=== PATIENT | female | born 1955 | race Caucasian/White ===

== ENCOUNTER 2019-07-12 15:55 | Inpatient (IN) | payer OTHER, SELFPAY ==
[~2019-07-12] VITALS: Ht 175.3 cm; Wt 118.9 kg
[2019-07-12] MEDS ORDERED: SUCCINYLCHOLINE CHLORIDE 20 MG/ML 10ML VIAL IV ONE ×2 (16:03→16:15)
[2019-07-12] MEDS ORDERED: ETOMIDATE (2MG/ML) 20ML VIAL IV ONE ×2 (16:03→16:15)
[2019-07-12] MEDS ORDERED: MIDAZOLAM DRIP 50 mg/50mL 50 ML IV ONE (16:04)
[2019-07-12] MEDS: MIDAZOLAM DRIP 50 mg/50mL 50 ML IV SCH ×3 (16:12→19:56)
[2019-07-12] MEDS ORDERED: PROPOFOL 100 ML IV ONE (16:36)
[2019-07-12] MEDS ORDERED: SODIUM CHLORIDE 0.9% 1,000 ML IV ONE (16:52)
[2019-07-12] MEDS ORDERED: cefTRIAXone 1GM/50ML D5W 50 ML IV ONE ×3 (16:56→17:15)
[2019-07-12] MEDS ORDERED: AZITHROMYCIN 500MG/ 250ML 250 ML IV ONE ×3 (16:56→17:15)
[2019-07-12 17:16] LABS: Eosinophils # (auto) 0 10 ^3/uL (0-0.8); Lymphocytes # (auto) 0.8 10 ^3/uL (0.4-5.4); Neutrophils # (auto) 7.6 10 ^3/uL (1.6-8.6); Neutrophils % (auto) 84.1 % (37.0-80.0)
[2019-07-12 17:17] LABS: Basophils # (auto) 0.1 10 ^3/uL (0-0.2); Basophils % (auto) 0.6 % (0.0-2.0); Eosinophils % (auto) 0.3 % (0.0-7.0); Hematocrit 31.3 % (36.0-46.0); Lymphocytes % (auto) 9.1 % (10.0-50.0); Mean Corpuscular Hemoglobin 25.3 pg (28.0-32.0); Mean Corpuscular Hgb Conc. 31.8 g/dL (32.0-36.0); Mean Corpuscular Volume 79.5 fL (80.0-100.0); Monocytes # (auto) 0.5 10 ^3/uL (0-1.3); Monocytes % (auto) 5.9 % (0.0-12.0); Platelet Count (auto) 204 10^3/uL (140-450); Red Blood Cells 3.94 10^6/uL (4.0-5.20); Red Cell Distribution Width 15.8 % (11.8-14.3)
[2019-07-12 17:30] LABS: Albumin 2.3 g/dL (3.4-5.0); Calcium 8.1 mg/dL (8.5-10.1); Potassium 4.6 mmol/L (3.5-5.1)
[2019-07-12 17:36] LABS: BUN/Creatinine Ratio 15.1; Bilirubin, Total 0.3 mg/dL (0.2-1.0); Total Protein 6.8 g/dL (6.4-8.2)
[2019-07-12] MEDS: PROPOFOL 100 ML IV SCH ×2 (17:37→18:59)
[2019-07-12] MEDS ORDERED: ENOXAPARIN SOD 150 MG/1 ML SYRINGE SC ONE (17:45)
[2019-07-12] MEDS ORDERED: CLOPIDOGREL BISULFATE 75 MG TAB PO ONE (17:45)
[2019-07-12 17:59] LABS: Urine Amorphous Crystal MANY /hpf (None Seen); Urine Bacteria MANY /hpf (None Seen); Urine Blood 2+ /uL (Negative); Urine Mucus FEW (None Seen); Urine Specific Gravity 1.024 (1.001-1.035); Urine WBC 2 /hpf (0 - 5); Urine WBC Clumps PRESENT /hpf (None Seen)
[2019-07-12 18:25] LABS: INR 1.01 (0.9-1.15); Partial Thromboplastin Time 23.1 sec (23.64-32.05)
--- NOTE | 2019-07-12 19:30 | NUR ---
PT INTUBATED ETT 8.0/ 22CM@LL, VENT SETTINGS: AC16/TV600/FIO2 70%/PEEP14, O2SAT 100%, BL LUNG SOUNDS DIMINISHED. CENTRAL LINE RSC TL, INFUSING VERSED@12MG/HR, PROPOFOL@30MCG/KG/MIN, NS@150ML/HR. OGT CLAMPED, PLACEMENT CHECKED. HARMON CATHETER DRAINING VIA GRAVITY W/ YELLOW URINE. TEMP 97.[address] SAFETY PRECAUTIONS IN PLACE. WILL CONTINUE TO MONITOR.
[2019-07-12] MEDS ORDERED: ACETAMINOPHEN 500 MG TAB PO PRN (19:45)
[2019-07-12] MEDS ORDERED: NITROGLYCERIN 0.4 MG SL TAB SL PRN (19:45)
[2019-07-12] MEDS ORDERED: DEXTROSE (50%) 50ML SYRG IV PRN (19:45)
[2019-07-12] MEDS ORDERED: MORPHINE SULF INJ 2 MG/ML SYRINGE 1ML IV PRN (19:45)
[2019-07-12 20:04] LABS: CRP High Sensitivity 0.18 mg/dL (< 0.3)
[2019-07-12 20:40] VITALS: BP 88/62
[2019-07-12] MEDS ORDERED: NOREPINEPHRINE 8 MG/250ML KIT 250 ML IV ONE (21:22)
[2019-07-12] MEDS ORDERED: ALBUMIN 5% 250 ML IV ONE ×2 (21:24→21:30)
[2019-07-12] MEDS: InsuLIN REG 1unit/0.01ml Soln (100units/ml) SC SCH (22:00)
[2019-07-12] MEDS ORDERED: ENOXAPARIN SOD 100 MG/1 ML SYRINGE SC SCH (22:00)
[2019-07-12] MEDS ORDERED: ALBUTEROL SULF HFA 90MCG INH 200DOSE IN SCH (22:00)
[2019-07-12] MEDS ORDERED: fentaNYL Drip 2500mCg/250mlNS 250 ML IV ONE (22:14)
[2019-07-12] MEDS: ACCU-CHEK COMFORT CURVE STRIP VI SCH (22:48)
[2019-07-12] MEDS: fentaNYL Drip 2500mCg/250mlNS 250 ML IV SCH (22:51)
[2019-07-12 23:00] VITALS: BP 120/72
[2019-07-13] VITALS (54 sets, daily range): BP systolic 104–143; BP diastolic 63–79
[2019-07-13] MEDS: PIPERACILLIN-TAZOB 2.25GM 50 ML IV SCH ×4 (00:55→17:50)
[2019-07-13] MEDS ORDERED: ENOXAPARIN SOD 150 MG/1 ML SYRINGE SC SCH (05:00)
[2019-07-13 06:24] LABS: Basophils # (auto) 0 10 ^3/uL (0-0.2); Basophils % (auto) 0.7 % (0.0-2.0); Eosinophils # (auto) 0.1 10 ^3/uL (0-0.8); Eosinophils % (auto) 0.9 % (0.0-7.0); Hematocrit 25.2 % (36.0-46.0); Hemoglobin 8.1 g/dL (12.2-16.2); Lymphocytes # (auto) 1.4 10 ^3/uL (0.4-5.4); Lymphocytes % (auto) 24.3 % (10.0-50.0); Mean Corpuscular Hemoglobin 25.1 pg (28.0-32.0); Mean Corpuscular Hgb Conc. 32.1 g/dL (32.0-36.0); Monocytes # (auto) 0.6 10 ^3/uL (0-1.3); Monocytes % (auto) 9.9 % (0.0-12.0); Neutrophils # (auto) 3.7 10 ^3/uL (1.6-8.6); Neutrophils % (auto) 64.2 % (37.0-80.0); Nucleated Red Blood Cells % 0.4 %; Platelet Count (auto) 150 10^3/uL (140-450); Red Blood Cells 3.22 10^6/uL (4.0-5.20); Red Cell Distribution Width 15.6 % (11.8-14.3); White Blood Cell 5.8 10^3/uL (4.4-10.8)
[2019-07-13 06:37] LABS: Calcium 7.7 mg/dL (8.5-10.1); Potassium 4.2 mmol/L (3.5-5.1)
[2019-07-13 06:42] LABS: BUN/Creatinine Ratio 11.9; Bilirubin, Total 0.3 mg/dL (0.2-1.0); Total Protein 5.5 g/dL (6.4-8.2)
[2019-07-13] MEDS: ACCU-CHEK COMFORT CURVE STRIP VI SCH ×4 (08:02→21:19)
[2019-07-13] MEDS: InsuLIN REG 1unit/0.01ml Soln (100units/ml) SC SCH ×4 (08:02→21:18)
[2019-07-13] MEDS: ZINC SULFATE 220mg CAP or TAB PO SCH (09:22)
[2019-07-13] MEDS: ASPirin 81 mg TAB PO SCH (09:22)
[2019-07-13] MEDS: AZITHROMYCIN 500MG/ 250ML 250 ML IV SCH (09:22)
[2019-07-13] MEDS: CHOLECALCIFEROL (VITD3) 1,000UNIT=25mCg TAB PO SCH (09:23)
[2019-07-13] MEDS: ASCORBIC ACID 500 MG TAB PO SCH (09:23)
[2019-07-13] MEDS: ENOXAPARIN SOD 150 MG/1 ML SYRINGE SC SCH ×2 (09:25→21:19)
[2019-07-13] MEDS ORDERED: AZITHROMYCIN DIHYD 500 MG VIAL IV SCH (10:00)
--- NOTE | 2019-07-13 13:52 | NUR ---
HOSPITALIST AT NURSE STATION DR PEDROZA UPDATED ON PATIENT'S STATUS, DRIPS AND PENDING CONSULTS. DR PEDROZA HAD PREVIOUSLY REVIEWED HIS LABS AND IMAGES. ORDERS FOR ONE DOSE LASIX RECEIVED.
--- NOTE | 2019-07-13 13:56 | NUR ---
MESSAGE LEFT FOR FAMILY TO OBTAIN PATIENT MEDICAL HISTORY AND COMPLETE ADMISSION ASSESSMENT, AWAITING RESPONSE.
[2019-07-13] MEDS ORDERED: FUROSEMIDE 20 MG/2 ML VIAL IV ONE (14:00)
--- NOTE | 2019-07-13 14:52 | NUR ---
MEDICATION NOT AVAILABLE CALLED PHARMACY REGARDING LASIX ORDER. THEY WILL SEND TO UNIT, AWAITING RECEIPT.
--- NOTE | 2019-07-13 16:00 | NUR ---
WOUND CARE NOTE: WOUND CARE TEAM IN TO SEE PATIENT PER WOUND CARE REQUEST FOR LOW DEE SCORE AND INTUBATION. PATIENT ADMITTED TO [facility] FOR ACUTE HYPOXIC AND HYPERCAPNIC RESPIRATORY FAILURE AND SEPSIS. PATIENT IS INTUBATED AND SEDATED. PATIENT HAS A DEE SCORE OF 10. BEDSIDE NURSE ADVISES THAT PATIENT HAS REDNESS TO ABDOMINAL AND BREAST SKIN FOLDS. NO OTHER WOUNDS NOTED BY BEDSIDE NURSE. RECOMMEND: BID/PRN MOISTURE BARRIER CREAM/ANTIFUNGAL CLEAR TO AFFECTED AREAS. FREQUENT REPOSITION [id number]/PRN CONDITION PERMITS. REDISTRIBUTE PRESSURE UTILIZING PILLOWS/WEDGES. SKIN/WOUND CARE PLAN. DIETARY CONSULT. CONTINUED MONITORING BY WOUND CARE TEAM.
--- NOTE | 2019-07-13 16:12 | NUR ---
HOSPITALIST AT BEDSIDE DR HIGH UPDATED ON PATIENT'S STATUS, DRIPS, LABS AND IMAGES. ORDERS RECEIVED AND WILL BE CARRIED OUT.
[2019-07-13] MEDS: PROPOFOL 100 ML IV SCH (17:52)
--- NOTE | 2019-07-13 19:00 | NUR ---
OPENING SHIFT NOTE: PRIMARY RN AVINASH RECEIVED REPORT ON PATIENT. PT INTUBATED ETT 8.0/ 24CM@LL, VENT SETTINGS: AC16/TV450/FIO2 40%/PEEP12, O2SAT 95%, BILATERAL LUNG SOUNDS DIMINISHED. CENTRAL LINE RIGHT IJ TRIPLE LUMEN, INFUSING FENTANYL@100, PROPOFOL@5. NGT IN RIGHT NARE CLAMPED, PLACEMENT CHECKED. HARMON CATHETER DRAINING VIA GRAVITY W/ YELLOW URINE. TEMP 100.[address] SAFETY PRECAUTIONS IN PLACE. WILL CONTINUE TO MONITOR. PATIENT ON ISOLATION FOR RULE OUT COVID 19.
--- NOTE | 2019-07-13 19:24 | NUR ---
END OF SHIFT NOTE PATIENT MECHANICALLY VENTILATED, SEDATED, NO DISTRESS NOTED, RESPIRATIONS EVEN AND UNLABORED. VSS AND DOCUMENTED. ENDORSED CONTINUED CARE TO CELERY WRAPPER RN. PATIENT'S SON AJAY AND SON RHIANNA CONTACT THIS NURSE AND PROVIDED SOME HISTORY. MEDICATION RECONCILIATION IS PENDING, JOHN MOCTEZUMA WILL BE CALLING WITH MEDICATION LIST. RECEIVING RN AWARE.
--- NOTE | 2019-07-13 20:30 | NUR ---
Home medications: Family called with list of patient medications. RN reviewed home medications with family and updated patient med rec.
[2019-07-13] MEDS: fentaNYL Drip 2500mCg/250mlNS 250 ML IV SCH (22:23)
[2019-07-13] MEDS ORDERED: TIOTCAP IN (23:20)
[2019-07-13] MEDS ORDERED: PANT1INJ3 PO (23:32)
[2019-07-13] MEDS ORDERED: ALBU108A5 IN (23:32)
[2019-07-13] MEDS ORDERED: MONT5CHW17 PO (23:32)
[2019-07-13] MEDS ORDERED: LOSA-39 PO (23:32)
[2019-07-13] MEDS ORDERED: CLOP75TA41 PO (23:32)
[2019-07-13] MEDS ORDERED: MAGN400T40 PO (23:32)
[2019-07-13] MEDS ORDERED: GLIP-110 PO (23:32)
[2019-07-13] MEDS ORDERED: MULT-927 PO (23:32)
[2019-07-13] MEDS ORDERED: CYCL10TA6 PO (23:32)
[2019-07-13] MEDS ORDERED: CHOL20007 PO (23:32)
[2019-07-13] MEDS ORDERED: AMLO5TAB15 PO (23:32)
[2019-07-13] MEDS ORDERED: ATOR40TA52 PO (23:32)
[2019-07-13] MEDS ORDERED: DIPH2.5T73 PO (23:32)
[2019-07-13] MEDS ORDERED: CITA-77 PO (23:32)
[2019-07-13] MEDS ORDERED: HYDR25TA4 PO (23:32)
[2019-07-13] MEDS ORDERED: LEVO88TA4 PO (23:32)
[2019-07-14] VITALS (92 sets, daily range): BP systolic 90–139; BP diastolic 58–79
[2019-07-14] MEDS: PIPERACILLIN-TAZOB 2.25GM 50 ML IV SCH ×4 (00:32→18:00)
--- NOTE | 2019-07-14 01:00 | NUR ---
Patient was given a bed bath. Patient tolerated intervention well with no s/s of discomfort or distress.
--- NOTE | 2019-07-14 05:37 | NUR ---
Urine output: Patient noted to have 250mL of urine output that was yellow in color and partly cloudy.
[2019-07-14 05:41] LABS: Basophils # (auto) 0 10 ^3/uL (0-0.2); Basophils % (auto) 0.4 % (0.0-2.0); Eosinophils # (auto) 0.1 10 ^3/uL (0-0.8); Eosinophils % (auto) 0.9 % (0.0-7.0); Hematocrit 24.3 % (36.0-46.0); Hemoglobin 7.8 g/dL (12.2-16.2); Lymphocytes % (auto) 11.8 % (10.0-50.0); Monocytes # (auto) 0.7 10 ^3/uL (0-1.3); Monocytes % (auto) 8.8 % (0.0-12.0); Neutrophils # (auto) 6.3 10 ^3/uL (1.6-8.6); Neutrophils % (auto) 78.1 % (37.0-80.0); Nucleated Red Blood Cells % 0.1 %; Platelet Count (auto) 127 10^3/uL (140-450); Red Blood Cells 3.12 10^6/uL (4.0-5.20); Red Cell Distribution Width 15.8 % (11.8-14.3); White Blood Cell 8.1 10^3/uL (4.4-10.8)
[2019-07-14 06:09] LABS: Albumin 1.8 g/dL (3.4-5.0); Calcium 7.2 mg/dL (8.5-10.1); Potassium 3.5 mmol/L (3.5-5.1)
[2019-07-14] MEDS: ACCU-CHEK COMFORT CURVE STRIP VI SCH ×4 (06:11→22:24)
[2019-07-14] MEDS: InsuLIN REG 1unit/0.01ml Soln (100units/ml) SC SCH ×4 (06:11→22:00)
[2019-07-14 06:15] LABS: BUN/Creatinine Ratio 10.2; Bilirubin, Total 0.5 mg/dL (0.2-1.0)
--- NOTE | 2019-07-14 07:00 | NUR ---
Closing shift note: Report given and care endorsed to Gi BETANCOURT. Patient continues to rest comfortably in bed with no s/s of discomfort or distress at this time.
--- NOTE | 2019-07-14 07:25 | NUR ---
INITIAL ASSESSMENT RECEIVED PT FROM PHARMACY OPERATIONS COORDINATOR, PT CURRENTLY ON SETTINGS AC, RR 16, VT 450, PEEP +12, FIO2 INCREASED TO 45%. PT IS ON VENT V7 PLUGGED INTO RED OUTLET, AMBU BAG AND MASK AVAILABLE AT BEDSIDE. PT WITH ETT 8.0 SECURED AT 22CM LIP WITH HOLISTER. ETT REPOSITIONED TO LEFT SIDE, NO SKIN BREAKDOWN NOTED. BREATH SOUNDS DIMINISHED THROUGHOUT. SUCTIONED FOR MODERATE AMOUNT THIN CLEAR SECRETIONS. LARGE AMOUNT OF CONDENSATION NOTED IN CIRCUIT, TUBING WAS DRAINED WITHOUT INCIDENT, HEATER TEMP ADJUSTED. VENT ALARMS SET AND AUDIBLE TO NURSE'S STATION. PT SEDATED AND DOES NOT WAKE TO VERBAL OR TACTILE STIMULI. SKIN IS WARM AND DRY TO TOUCH. ABG DRAWN, RESULTS TO FOLLOW. WILL CONTINUE TO MONITOR.
--- NOTE | 2019-07-14 07:45 | NUR ---
OPENING NOTE SHIFT REPORT RECEIVED AND ASSUMED CARE OF PT FROM JAYY BETANCOURT/AVINASH BETANCOURT
[2019-07-14] MEDS: AZITHROMYCIN 500MG/ 250ML 250 ML IV SCH (09:47)
[2019-07-14] MEDS: ASPirin 81 mg TAB PO SCH (09:48)
[2019-07-14] MEDS: ENOXAPARIN SOD 150 MG/1 ML SYRINGE SC SCH (09:49)
[2019-07-14] MEDS ORDERED: AZITHROMYCIN DIHYD 500 MG VIAL IV SCH (10:00)
[2019-07-14] MEDS: CHOLECALCIFEROL (VITD3) 1,000UNIT=25mCg TAB PO SCH (10:00)
[2019-07-14] MEDS: ASCORBIC ACID 500 MG TAB PO SCH (10:51)
[2019-07-14] MEDS: ZINC SULFATE 220mg CAP or TAB PO SCH (11:53)
--- NOTE | 2019-07-14 12:00 | NUR ---
SPOKE WITH DR. PEDROZA ORDERS RECEIVED
[2019-07-14] MEDS: LACTATED RINGER'S 1,000 ML IV SCH (12:25)
--- NOTE | 2019-07-14 13:00 | NUR ---
DR. HOUSTON AT BEDSIDE ORDERS RECEIVED
[2019-07-14] MEDS ORDERED: BUMETANIDE 2.5mg/10ml (0.25 mg/ml) INJ IV ONE (13:15)
--- NOTE | 2019-07-14 14:30 | NUR ---
Nutrition Assessment Notes Please refer to link for full assessment notes. Est energy needs: 8211-8434 kcals (12-15 kcal/kgBW) Est protein needs: 83-92 gms/day (1.0-1.1 gm/kgAdjBW) Will continue to monitor and reassess prn. Addendum: 07/14/19 at [address] Amended: Links added.
[2019-07-14] MEDS: MIDAZOLAM DRIP 50 mg/50mL 50 ML IV SCH (16:12)
[2019-07-14] MEDS: fentaNYL Drip 2500mCg/250mlNS 250 ML IV SCH (16:22)
[2019-07-14 16:33] LABS: INR 1.09 (0.9-1.15)
[2019-07-14] MEDS: FUROSEMIDE 100 MG/10ML VIAL IV SCH (18:00)
[2019-07-14] MEDS: PROPOFOL 100 ML IV SCH (19:23)
--- NOTE | 2019-07-14 19:35 | NUR ---
CLOSING NOTE SHIFT REPORT GIVEN AND CARE ENDORSED TO MAURILIO BETANCOURT
--- NOTE | 2019-07-14 22:45 | NUR ---
O2 saturations dropping to 88% and sustaining, RT at bedside to increase fio2 to 45%. O2 sats now 95%.
[2019-07-15] VITALS (94 sets, daily range): BP systolic 64–148; BP diastolic 48–70
[2019-07-15] MEDS: PIPERACILLIN-TAZOB 2.25GM 50 ML IV SCH ×5 (00:29→23:34)
[2019-07-15] MEDS: LACTATED RINGER'S 1,000 ML IV SCH ×2 (01:35→10:46)
[2019-07-15 05:07] LABS: Basophils # (auto) 0 10 ^3/uL (0-0.2); Eosinophils # (auto) 0.1 10 ^3/uL (0-0.8); Hemoglobin 8.2 g/dL (12.2-16.2); Lymphocytes # (auto) 0.8 10 ^3/uL (0.4-5.4); Monocytes # (auto) 0.5 10 ^3/uL (0-1.3); Neutrophils % (auto) 77.1 % (37.0-80.0)
[2019-07-15 05:10] LABS: Basophils % (auto) 0.3 % (0.0-2.0); Eosinophils % (auto) 1.4 % (0.0-7.0); Hematocrit 25.4 % (36.0-46.0); Mean Corpuscular Hgb Conc. 32.4 g/dL (32.0-36.0); Mean Corpuscular Volume 77.3 fL (80.0-100.0); Monocytes % (auto) 8.2 % (0.0-12.0); Neutrophils # (auto) 4.7 10 ^3/uL (1.6-8.6); Nucleated Red Blood Cells % 0.1 %; Platelet Count (auto) 117 10^3/uL (140-450); Red Blood Cells 3.28 10^6/uL (4.0-5.20); Red Cell Distribution Width 16.1 % (11.8-14.3)
[2019-07-15 05:25] LABS: Albumin 1.7 g/dL (3.4-5.0); Calcium 7.6 mg/dL (8.5-10.1); Potassium 3.8 mmol/L (3.5-5.1)
[2019-07-15 05:31] LABS: BUN/Creatinine Ratio 10.1; Bilirubin, Total 0.4 mg/dL (0.2-1.0); Total Protein 5.6 g/dL (6.4-8.2)
[2019-07-15] MEDS: FUROSEMIDE 100 MG/10ML VIAL IV SCH (05:57)
[2019-07-15] MEDS: ACCU-CHEK COMFORT CURVE STRIP VI SCH ×4 (06:34→22:00)
[2019-07-15] MEDS: InsuLIN REG 1unit/0.01ml Soln (100units/ml) SC SCH ×4 (06:34→22:00)
[2019-07-15] MEDS: ENOXAPARIN SOD 150 MG/1 ML SYRINGE SC SCH (10:00)
[2019-07-15] MEDS ORDERED: ASPirin 81 mg TAB PO SCH (10:00)
--- NOTE | 2019-07-15 10:00 | NUR ---
LOVENOX HELD DUE TO FACT PATIENT CONTINUES TO HAVE BLEEDING FROM CENTRAL LINE WELL ABDOMEN FROM PREVIOUS LOVENOX ADMINISTRATION. DR. PEDROZA CALLED TO BE MADE AWARE.
--- NOTE | 2019-07-15 10:40 | NUR ---
2D ECHO BEING DONE AT TIS TIME. SEE REPORT
[2019-07-15] MEDS: ASPirin 81 mg TAB PO SCH (10:46)
[2019-07-15] MEDS: AZITHROMYCIN 500MG/ 250ML 250 ML IV SCH (10:46)
[2019-07-15] MEDS: CHOLECALCIFEROL (VITD3) 1,000UNIT=25mCg TAB PO SCH (10:47)
[2019-07-15] MEDS: ASCORBIC ACID 500 MG TAB PO SCH (10:47)
[2019-07-15] MEDS: ZINC SULFATE 220mg CAP or TAB PO SCH (10:47)
[2019-07-15] MEDS: FUROSEMIDE INJECTION 100 MG in D5W 5% 100 ML IV SCH ×2 (10:51→17:24)
--- NOTE | 2019-07-15 14:53 | NUR ---
DR. SKELTON HERE TO SEE PATIENT. SEE MD NOTES AND EMR FOR ANY NEW ORDERS.
--- NOTE | 2019-07-15 14:55 | NUR ---
assessment Patient is a 63 year old female who is on a vent in [facility]. Per patients Ronni prior to admission patient lived home with him and was independent. Per Thong patient has a fww and home 02 at 2L/min. Thong informed me patient was sick had SOB and desated with ambulation down to the 50's. Thong informed me he turned patients 02 to 4 L/m and it did not help so he called 911. Patient was brought to ER and admitted and put on a vent. I informed Thong that patients post discharge needs to be determined after extubation and prior to discharge. Thong verbalized understanding. Addendum: 07/15/19 at 1513 by Billie OLIVER Amended: Links added.
--- NOTE | 2019-07-15 15:40 | NUR ---
Susan PEDROZA HERE TO SEE PATIENT. SEE MD NOTES AND EMR FOR ANY NEW ORDERS.
--- NOTE | 2019-07-15 15:45 | NUR ---
SAY FORD MADE AWARE THAT PATIENTS ET TUBE IS 8.5 CM ABOVE THE MARYBEL.
[2019-07-15] MEDS: PROPOFOL 100 ML IV SCH ×2 (16:03→21:44)
[2019-07-15] MEDS: MIDAZOLAM DRIP 50 mg/50mL 50 ML IV SCH (16:12)
[2019-07-15] MEDS: fentaNYL Drip 2500mCg/250mlNS 250 ML IV SCH (22:25)
[2019-07-16] VITALS (96 sets, daily range): BP systolic 101–169; BP diastolic 45–145
[2019-07-16 03:54] LABS: Basophils # (auto) 0 10 ^3/uL (0-0.2); Basophils % (auto) 0.2 % (0.0-2.0); Eosinophils # (auto) 0.1 10 ^3/uL (0-0.8); Hemoglobin 8.3 g/dL (12.2-16.2); Monocytes # (auto) 0.6 10 ^3/uL (0-1.3); Neutrophils # (auto) 6.5 10 ^3/uL (1.6-8.6); Nucleated Red Blood Cells % 0.1 %; Red Cell Distribution Width 15.8 % (11.8-14.3); White Blood Cell 7.7 10^3/uL (4.4-10.8)
[2019-07-16 03:56] LABS: Eosinophils % (auto) 0.9 % (0.0-7.0); Hematocrit 25.3 % (36.0-46.0); Lymphocytes # (auto) 0.6 10 ^3/uL (0.4-5.4); Lymphocytes % (auto) 7.6 % (10.0-50.0); Mean Corpuscular Hemoglobin 25.3 pg (28.0-32.0); Mean Corpuscular Hgb Conc. 32.6 g/dL (32.0-36.0); Mean Corpuscular Volume 77.5 fL (80.0-100.0); Monocytes % (auto) 7.5 % (0.0-12.0); Neutrophils % (auto) 83.8 % (37.0-80.0); Platelet Count (auto) 98 10^3/uL (140-450); Red Blood Cells 3.27 10^6/uL (4.0-5.20)
[2019-07-16 04:15] LABS: Albumin 1.7 g/dL (3.4-5.0); Calcium 7.7 mg/dL (8.5-10.1); Potassium 3.7 mmol/L (3.5-5.1)
[2019-07-16 04:20] LABS: BUN/Creatinine Ratio 9.9; Bilirubin, Total 0.4 mg/dL (0.2-1.0); Total Protein 5.7 g/dL (6.4-8.2)
[2019-07-16] MEDS: FUROSEMIDE INJECTION 100 MG in D5W 5% 100 ML IV SCH (04:45)
[2019-07-16] MEDS: PIPERACILLIN-TAZOB 2.25GM 50 ML IV SCH ×4 (05:17→21:56)
[2019-07-16] MEDS: InsuLIN REG 1unit/0.01ml Soln (100units/ml) SC SCH ×4 (05:58→21:54)
[2019-07-16] MEDS: ACCU-CHEK COMFORT CURVE STRIP VI SCH ×4 (05:58→21:54)
[2019-07-16] MEDS: LACTATED RINGER'S 1,000 ML IV SCH (05:59)
--- NOTE | 2019-07-16 09:30 | NUR ---
ASSESSMENTS COMPLETED SEE INTERVENTIONS, LEFT BUTTOCKS HAS NON BLANCHABLE MULTIPLE PURPLE AREAS. WILL TAKE PICTURE FOR WOUND CARE ON NEXT TURN.
--- NOTE | 2019-07-16 09:59 | NUR ---
DR LOMAX AT BEDSIDE, NEW ORDERS RECEIVED
[2019-07-16] MEDS ORDERED: Nepro With Carb Steady 1 Liter Bottle GT SCH (10:00)
[2019-07-16] MEDS ORDERED: ALBUMIN 25% 100 ML IV SCH ×2 (10:00→11:12)
[2019-07-16] MEDS: DOPamine 1600MCG/ML D5W 250 ML IV SCH (10:23)
[2019-07-16] MEDS: AZITHROMYCIN 500MG/ 250ML 250 ML IV SCH (10:29)
[2019-07-16] MEDS: CHOLECALCIFEROL (VITD3) 1,000UNIT=25mCg TAB PO SCH (10:29)
[2019-07-16] MEDS: ENOXAPARIN SOD 150 MG/1 ML SYRINGE SC SCH (10:29)
[2019-07-16] MEDS: ZINC SULFATE 220mg CAP or TAB PO SCH (10:30)
[2019-07-16] MEDS: ASPirin 81 mg TAB PO SCH (10:30)
[2019-07-16] MEDS: ASCORBIC ACID 500 MG TAB PO SCH (10:30)
[2019-07-16] MEDS: BUMETANIDE INJECTION 12.5 MG in GIVE UN-DILUTED 0 ML IV SCH (11:10)
[2019-07-16] MEDS ORDERED: ENOXAPARIN SOD 30 MG/0.3 ML SYRINGE SC ONE (12:15)
[2019-07-16] MEDS: PROPOFOL 100 ML IV SCH (12:55)
[2019-07-16] MEDS: fentaNYL Drip 2500mCg/250mlNS 250 ML IV SCH (12:56)
--- NOTE | 2019-07-16 13:00 | NUR ---
WOUND CARE NOTE: TCB BARIATRIC AIR BED ORDERED AT THIS TIME. PATIENT TO BE PLACED, PENDING DELIVERY BY BARRY DESAI. ADVISED BEDSIDE NURSEADEEL OF ORDER.
--- NOTE | 2019-07-16 15:32 | NUR ---
DR PEDROZA AT BEDSIDE, DR AWARE PATIENT WAS STARTED ON TUBE FEEDINGS ORDERED AND IS TOLERATING 20 ML/HR BUT NO GOAL RATE. NEW ORDER FOR GOAL RATE 60ML/HR. AWARE OF PRELIMINARY URINE RESULTS. NEW ORDER FOR DIFLUCAN 200 MG IV DAILY.
[2019-07-16] MEDS: Nepro With Carb Steady 1 Liter Bottle GT SCH (16:45)
[2019-07-16] MEDS: MIDAZOLAM DRIP 50 mg/50mL 50 ML IV SCH (16:45)
--- NOTE | 2019-07-16 17:00 | NUR ---
SON CALLED, HAD PASSWORD, RN UPDATED ON PLAN OF CARE
--- NOTE | 2019-07-16 18:13 | NUR ---
Respiratory note: RECEIVED PT IN VENT V7, VENT CONNECTED TO RED OUTLET AND O2 SOURCE. ALARMS ARE SET AND AUDIBLE. AMBU BAG AND MASK AT BEDSIDE. BS ARE FINE COURSE IN BILATERAL BASES, SXD VIA ETT FOR THIN SCANT XIE/CLEAR SECRETIONS. RT NAME AND PAGER ASSIGN WRITTEN ON PTS ROOM BOARD WILL CONTINUE TO MONITOR Q2H AND PRN.
--- NOTE | 2019-07-16 19:11 | NUR ---
REPORT GIVEN TO MICHAEL BETANCOURT
--- NOTE | 2019-07-16 19:45 | NUR ---
OPENING NOTE: INTUBATED AND SEDATED. OPENS EYES BUT DOES NOT TRACK NOR FOLLOW COMMANDS AT THIS TIME. NSR, HR 60-70s. SBP 120-140s. 8.0 ETT, 26 AT THE LIP. LS CTA, DIMINISHED THROUGHOUT. EVEN AND UNLABORED BREATHING. SpO2>95% ON CURRENT VENT SETTINGS. ABD SOFT. HYPOACTIVE BS. SMALL BM PER DAY SHIFT. NGT + AIR BOLUS, MINIMAL GASTRIC RESIDUALS ON TF. HARMON PATENT AND INTACT, DRAINING CLOUDY/SEDIMENT URINE. SEE SKIN AND WOUND FLOWSHEET FOR ASSESSMENT. RIGHT IJ TLC, DRESSING LOOSE, BUT PATENT WITH BLOOD RETURN. NO PAIN BEHAVIORS IDENTIFIED. REINFORCED POC. MAINTAINED PATIENT SAFETY: BED LOCKED AND IN THE LOWEST POSITION, FREQUENT VISUAL CHECKS.
--- NOTE | 2019-07-16 20:02 | NUR ---
MODERATE ORANGE/BROWN LIQUID BMX1
--- NOTE | 2019-07-16 20:19 | NUR ---
Respiratory note: AT BEDSIDE FOR ROUTINE VENT CHECK NO CHANGES MADE AT THIS TIME. PTS CURRENT TEMP IS 99.1F. WILL CONTINUE TO MONITOR.
--- NOTE | 2019-07-16 20:30 | NUR ---
GASTRIC RESIDUAL < 10 ML - INCREASED TF RATE TO 45 ML/HR
--- NOTE | 2019-07-16 21:30 | NUR ---
UNABLE TO COMPLETE SEDATION VACATION AT THIS TIME: REMAINS ON HIGH PEEP. Addendum: 07/16/19 at 2132 by Denise Vogt RN RN Amended: Links added.
[2019-07-16] MEDS: ALBUMIN 25% 100 ML IV SCH (21:55)
--- NOTE | 2019-07-16 22:13 | NUR ---
Respiratory note: AT BEDSIDE FOR ROUTINE VENT CHECK NO CHANGES MADE AT THIS TIME. PTS CURRENT TEMP IS 98.8F. WILL CONTINUE TO MONITOR.
[2019-07-17] VITALS (69 sets, daily range): BP systolic 109–157; BP diastolic 44–94
--- NOTE | 2019-07-17 00:01 | NUR ---
Respiratory note: AT BEDSIDE FOR ROUTINE VENT CHECK NO CHANGES MADE AT THIS TIME. BS ARE DIMINISHED T/O, PTS CURRENT TEMP IS 98.4F. WILL CONTINUE TO MONITOR.
--- NOTE | 2019-07-17 00:21 | NUR ---
MINIMAL GASTRIC RESIDUAL - TF RATE INCREASED TO GOAL OF 60 ML/HR
--- NOTE | 2019-07-17 00:21 | NUR ---
CENTRAL LINE DRESSING CHANGED VIA STERILE TECHNIQUE: PATIENT TOLERATED WELL
[2019-07-17] MEDS: fentaNYL Drip 2500mCg/250mlNS 250 ML IV SCH ×2 (00:54→23:11)
--- NOTE | 2019-07-17 02:16 | NUR ---
Respiratory note: AT BEDSIDE FOR ROUTINE VENT CHECK. FIO2 TITRATED TO 40% VIA VENT. PT TOLERATING CHANGE WELL. WILL CONTINUE TO MONITOR.
[2019-07-17] MEDS: BUMETANIDE INJECTION 12.5 MG in GIVE UN-DILUTED 0 ML IV SCH ×2 (02:45→11:00)
--- NOTE | 2019-07-17 02:52 | NUR ---
LARGE LIQUID BM X1 - NOTED WITH ?DTI, NON BLANCHABLE ERYTHEMA/ECCHYMOSIS WITH BLISTERS - INSERTED RECTAL TUBE
[2019-07-17] MEDS: PROPOFOL 100 ML IV SCH ×3 (03:01→22:19)
--- NOTE | 2019-07-17 04:18 | NUR ---
Respiratory note: AT BEDSIDE FOR END OF SHIFT VENT CHECK. FIO2 TITRATED TO 35% RN MICHAEL MADE AWARE. WILL HAVE DAY SHIFT CONTINUE TO POC.
[2019-07-17 06:02] LABS: Basophils # (auto) 0 10 ^3/uL (0-0.2); Basophils % (auto) 0.4 % (0.0-2.0); Eosinophils # (auto) 0.1 10 ^3/uL (0-0.8); Mean Corpuscular Volume 77.1 fL (80.0-100.0)
[2019-07-17] MEDS: InsuLIN REG 1unit/0.01ml Soln (100units/ml) SC SCH ×4 (06:03→22:00)
[2019-07-17] MEDS: ACCU-CHEK COMFORT CURVE STRIP VI SCH ×4 (06:04→22:03)
[2019-07-17] MEDS: PIPERACILLIN-TAZOB 2.25GM 50 ML IV SCH ×3 (06:04→22:02)
[2019-07-17 06:05] LABS: Eosinophils % (auto) 1.1 % (0.0-7.0); Hematocrit 20.6 % (36.0-46.0); Lymphocytes # (auto) 0.5 10 ^3/uL (0.4-5.4); Lymphocytes % (auto) 8.3 % (10.0-50.0); Mean Corpuscular Hemoglobin 25.2 pg (28.0-32.0); Mean Corpuscular Hgb Conc. 32.7 g/dL (32.0-36.0); Monocytes # (auto) 0.7 10 ^3/uL (0-1.3); Monocytes % (auto) 10.2 % (0.0-12.0); Neutrophils # (auto) 5.1 10 ^3/uL (1.6-8.6); Platelet Count (auto) 75 10^3/uL (140-450); Red Blood Cells 2.67 10^6/uL (4.0-5.20); Red Cell Distribution Width 15.7 % (11.8-14.3); White Blood Cell 6.4 10^3/uL (4.4-10.8)
[2019-07-17 06:07] LABS: Hemoglobin 6.7 g/dL (12.2-16.2)
[2019-07-17 06:20] LABS: Potassium 3.3 mmol/L (3.5-5.1)
--- NOTE | 2019-07-17 06:21 | NUR ---
HGB 6.7 - WILL SEND REDRAW
[2019-07-17 06:29] LABS: Hematocrit 22.5 % (36.0-46.0); Hemoglobin 7.5 g/dL (12.2-16.2)
--- NOTE | 2019-07-17 06:30 | NUR ---
CLOSING NOTE: REMAINS INTUBATED AND SEDATED. LOW GRADE TEMP OF 99.3F. ICE PACKS APPLIED. Addendum: 07/17/19 at 0650 by Denise Vogt RN RN AMENDMENT - NOT FEBRILE. VSS. WILL CONT CARE
[2019-07-17 06:45] LABS: Albumin 2.2 g/dL (3.4-5.0); BUN/Creatinine Ratio 9.7; Bilirubin, Total 0.4 mg/dL (0.2-1.0); Calcium 7.8 mg/dL (8.5-10.1); Phosphorus 6.6 mg/dL (2.5-4.90); Total Protein 5.9 g/dL (6.4-8.2)
--- NOTE | 2019-07-17 06:48 | NUR ---
RECHECK HGB NOW 7.5
[2019-07-17] MEDS ORDERED: POTASSIUM CHL 20MEQ/100ML 100 ML IV ONE ×2 (06:54→07:00)
--- NOTE | 2019-07-17 07:00 | NUR ---
POTASSIUM 3.3 - WILL GIVE 20 MEQ KCL PER COMMUNICATION ORDER
--- NOTE | 2019-07-17 07:13 | NUR ---
REPORT AND CARE ENDORSED TO ASIA JOYNER
--- NOTE | 2019-07-17 08:00 | NUR ---
OPEN RECEIVED REPORT FROM NIGHT RN. ASSUMED CARE OF ICU STATUS PATIENT IN [facility] ROOM 264. PATIENT INTUBATED AND SEDATED AT THIS TIME. SEE ER MEDICAL TECHNICIAN, IV FLOW SHEET AND VS FLOW SHEET FOR FURTHER PATIENT INFORMATION. CONTINUE CARE.
[2019-07-17] MEDS ORDERED: ENOXAPARIN SOD 30 MG/0.3 ML SYRINGE SC SCH (10:00)
[2019-07-17] MEDS ORDERED: ENOXAPARIN SOD 40 MG/0.4 ML SYRINGE SC SCH (10:00)
[2019-07-17] MEDS: ALBUMIN 25% 100 ML IV SCH ×2 (10:30→19:59)
[2019-07-17] MEDS: FLUCONAZOLE 200MG/100ML 100 ML IV SCH (11:00)
--- NOTE | 2019-07-17 11:00 | NUR ---
WOUND CARE AT BEDSIDE: PICTURES TAKEN AT THIS TIME. JERSON RN AT BEDSIDE TAKING PICTURES OF PATIENT'S SACRAL AREA. SEE PYROTECHNIST NOTES. WILL CONTINUE CARE.
--- NOTE | 2019-07-17 11:00 | NUR ---
WOUND CARE NOTE: IN TO SEE PATIENT AT THIS TIME FOR NEW WOUND CONCERN. PATIENT NOTED TO HAVE A PURPLE ECCHYMOSIS DEVELOPED TO THE SACRUM UPON ASSESSMENT BY BEDSIDE NURSE. WOUND CONSULT ORDERED. SPECIALTY BARIATRIC AIR BED WAS ORDERED, AND PATIENT IS CURRENTLY RESTING ON HER AIRBED. PATIENT REMAINS INTUBATED, SEDATED, CURRENT DEE SCORE IS 12. SHE WAS TURNED TO RIGHT SIDE LYING POSITION, NOTED TO HAVE AN INTACT 7 X 9 CM INTACT MAROON DTI TO MEDIAL SACRUM. THERE IS A SMALL 1.5 X 1 CM BLISTER THAT IS SERUM FILLED TO MEDIAL SACRUM. OPTIFOAM GENTLE SACRAL DRESSING IS PLACED TO THE AREA. NO OTHER SKIN INTEGRITY ISSUES SEEN AT THIS TIME. ADVISED BEDSIDE NURSE TO PROVIDE SIDE TO SIDE POSITIONING ONLY, AVOIDING SUPINE POSITION. PATIENT REPOSITIONED ONTO RIGHT SIDE, REDISTRIBUTING PRESSURE POINTS USING PILLOWS. RECOMMEND: SPECIALTY BARIATRIC AIR BED, SIDE TO SIDE POSITIONING, CONTINUATION WITH ALL OTHER WOUND CARE ORDERS PREVIOUSLY PRESCRIBED BY MD. WOUND CARE TEAM WILL CONTINUE TO MONITOR. Addendum: 07/17/19 at 1609 by Venecia Leon RN Amended: Links added.
[2019-07-17] MEDS: ASPirin 81 mg TAB PO SCH (11:28)
[2019-07-17] MEDS: DOPamine 1600MCG/ML D5W 250 ML IV SCH (11:29)
[2019-07-17] MEDS: Nepro With Carb Steady 1 Liter Bottle GT SCH (11:30)
[2019-07-17] MEDS: IRON SUCROSE COMPLEX 200 MG in SODIUM CHL 0.9% 100 ML IV SCH (12:54)
--- NOTE | 2019-07-17 14:32 | NUR ---
Nutrition Follow-up Recommendations: 1) Reduce rate of EN support with Nepro Carb Steady 1.8 Fred to @40ml/hr goal rate. 2) Consider taking daily weights. Wt.: 136.078 kg Pt is sedated and on ventilator. Per RN, pt was receiving TF, currently stopped and awaiting new bag, with Nepro Carb Steady 1.8 Fred @60 ml/hr goal rate, providing 2592 kcal, 117 g protein, and 1047 ml water. Current rate provides energy and protein in excess of needs. Noted propofol currently running @16.329 ml/hr providing 431 kcal. Spoke to RN and suggested to reduce EN support rate with Nepro 1.8 Fred to @40 ml/hr. Will continue to monitor NPO status, skin status, pertinent labs and weight trends. Will f/u in 2 to 3 days. Est energy needs: 6358-7701 kcals (12-15 kcal/kg BW) Est protein needs: 83-108 gms/day (1.0-1.3 gm/kg Adj.BW) Labs 07/16: K 3.3 L, BUN 41 H, Cr 4.24 H, Glucose 134 H, POC 154 H, GFR 11, TP 5.9 L, Albumin 2.2 L. Skin: Micah scale 12, high risk, please refer to wound assessment report for full details. GI: Pt had BM on 07/17/19, per bakery worker. PES: 1) Inadequate nutrient intake r/t current nutrient needs aeb pt sedated, intubated, NPO - (RESOLVED) 2) Obesity r/t energy intake in excess of energy needs aeb 206% IBW and BMI of 44.3 kg/m2 3) Altered nutrition related lab values r/t current medical condition aeb hyperchloremia, elevated RFTs, low GFR, hypocalcemia, elevated troponin, hypoproteinemia, severe hypoalbuminemia.
[2019-07-17] MEDS: MIDAZOLAM DRIP 50 mg/50mL 50 ML IV SCH (14:53)
[2019-07-17] MEDS: CALCIUM ACETATE 667 MG CAP NG SCH ×2 (15:15→22:02)
--- NOTE | 2019-07-17 16:45 | NUR ---
DR. HIGH AT BEDSIDE: ORDERS MD AT BEDSIDE ASSESSING PATIENT AT THIS TIME. MD UPDATED ON PT'S CURRENT STATUS, LABS AND POC FOR TODAY. ORDERS GIVEN TO DECREASE PEEP TO +10 AT THIS TIME. MD MADE CHANGES AT THIS TIME. CONTINUE CARE.
--- NOTE | 2019-07-17 18:16 | NUR ---
Respiratory note: received pt on vent v7, vent connected to red outlet and o2 source. alarms are set and audible. ambu bag and mask at bedside. bs are diminished t/o, no sxd done at this time, rt name and pager assignment written on pts room board. will continue to monitor.
--- NOTE | 2019-07-17 20:00 | NUR ---
OPENING NOTE: INTUBATED AND SEDATED. OPENS EYES BUT DOES NOT TRACK NOR FOLLOW COMMANDS AT THIS TIME. NSR, HR 60-70s. SBP 120-130s. 8.0 ETT, 26 AT THE LIP. LS CTA, DIMINISHED THROUGHOUT. EVEN AND UNLABORED BREATHING. SpO2>95% ON CURRENT VENT SETTINGS. ABD SOFT. HYPOACTIVE BS. SMALL BM PER DAY SHIFT. NGT + AIR BOLUS, MINIMAL GASTRIC RESIDUALS ON TF. HARMON PATENT AND INTACT, DRAINING CLOUDY/SEDIMENT URINE. SEE SKIN AND WOUND FLOWSHEET FOR ASSESSMENT. RIGHT IJ TLC, CDI, PATENT WITH BLOOD RETURN. NO PAIN BEHAVIORS IDENTIFIED. REINFORCED POC. MAINTAINED PATIENT SAFETY: BED LOCKED AND IN THE LOWEST POSITION, FREQUENT VISUAL CHECKS.
--- NOTE | 2019-07-17 20:02 | NUR ---
SCHEDULED ALBUMIN NOT GIVEN DURING THE DAY - 2199 DOSE GIVEN EARLY
--- NOTE | 2019-07-17 20:29 | NUR ---
Respiratory note: AT BEDSIDE FOR ROUTINE VENT CHECK. NO CHANGES MADE WILL CONTINUE TO MONITOR.
--- NOTE | 2019-07-17 21:00 | NUR ---
UNABLE TO COMPLETE SEDATION VACATION AT THIS TIME: REMAINS ON HIGH PEEP WITH STRONG COUGH EPISODES THAT LEADS TO DESATURATION.
--- NOTE | 2019-07-17 22:22 | NUR ---
Respiratory note: AT BEDSIDE FOR ROUTINE VENT CHECK. SXD FOR SCANT THICK XIE. NO CHANGES MADE WILL CONTINUE TO MONITOR.
[2019-07-18] VITALS (105 sets, daily range): BP systolic 122–167; BP diastolic 44–101
--- NOTE | 2019-07-18 00:13 | NUR ---
Respiratory note: AT BEDSIDE FOR ROUTINE VENT CHECK. NO CHANGES MADE WILL CONTINUE TO MONITOR.
--- NOTE | 2019-07-18 00:49 | NUR ---
BED BATH WITH CHG WIPES, WENDIE CARE, HARMON CARE, ORAL CARE, AND FULL LINEN CHANGE COMPLETED
--- NOTE | 2019-07-18 00:50 | NUR ---
SACRAL CARE: NO DRESSING PRESENT. INTACT DTI, AND BLISTER NOTED. COVERED WITH GENTLE OPTIFOAM
[2019-07-18] MEDS: PIPERACILLIN-TAZOB 2.25GM 50 ML IV SCH ×3 (06:15→22:17)
[2019-07-18] MEDS: CALCIUM ACETATE 667 MG CAP NG SCH ×3 (06:15→22:17)
[2019-07-18] MEDS: InsuLIN REG 1unit/0.01ml Soln (100units/ml) SC SCH ×4 (06:17→22:00)
[2019-07-18] MEDS: ACCU-CHEK COMFORT CURVE STRIP VI SCH ×4 (06:25→22:12)
--- NOTE | 2019-07-18 06:31 | NUR ---
CLOSING NOTE: REMAINS INTUBATED AND SEDATED. VSS. WILL ENDORSE CARE TO DAY SHIFT.
[2019-07-18] MEDS: PROPOFOL 100 ML IV SCH ×4 (06:33→23:48)
[2019-07-18 06:47] LABS: Basophils # (auto) 0 10 ^3/uL (0-0.2); Basophils % (auto) 0.3 % (0.0-2.0); Hemoglobin 7.8 g/dL (12.2-16.2); Lymphocytes # (auto) 0.5 10 ^3/uL (0.4-5.4); Neutrophils # (auto) 4.3 10 ^3/uL (1.6-8.6); Nucleated Red Blood Cells % 0.1 %
[2019-07-18 06:51] LABS: Eosinophils # (auto) 0.2 10 ^3/uL (0-0.8); Eosinophils % (auto) 2.8 % (0.0-7.0); Hematocrit 23.6 % (36.0-46.0); Lymphocytes % (auto) 9.6 % (10.0-50.0); Mean Corpuscular Hemoglobin 25.3 pg (28.0-32.0); Mean Corpuscular Volume 76.5 fL (80.0-100.0); Monocytes # (auto) 0.6 10 ^3/uL (0-1.3); Neutrophils % (auto) 77.3 % (37.0-80.0); Platelet Count (auto) 47 10^3/uL (140-450); Red Blood Cells 3.08 10^6/uL (4.0-5.20); Red Cell Distribution Width 15.7 % (11.8-14.3); White Blood Cell 5.6 10^3/uL (4.4-10.8)
[2019-07-18 06:59] LABS: Albumin 2.3 g/dL (3.4-5.0); BUN/Creatinine Ratio 10.7; Calcium 8.2 mg/dL (8.5-10.1)
[2019-07-18 07:02] LABS: Bilirubin, Total 0.3 mg/dL (0.2-1.0); Phosphorus 5.5 mg/dL (2.5-4.90); Total Protein 5.9 g/dL (6.4-8.2)
--- NOTE | 2019-07-18 07:30 | NUR ---
REPORT CARE AND ENDORSED TO CLARK, RN
--- NOTE | 2019-07-18 07:45 | NUR ---
Opening Shift Note Assumed care of patient, patient lying on the bed, connected to ventilator and sedation, no restless or agitation noted, open her eyes then close after touching and calling her name. No S/S of distress/SOB or pain noted. On Dopamine, Propofol, Fentanyl, Bumex, patient has Bruce's catheter and flexiseal. Instructed on POC, will continue to monitor for changes Q1hr and PRN.
[2019-07-18] MEDS: POTASSIUM CHL 20MEQ/100ML 100 ML IV SCH ×2 (07:55→09:22)
--- NOTE | 2019-07-18 09:13 | NUR ---
Per audio visual arts director, due to patient still on ventilator, sedation, already having feeding tube for nutrition, max 40 ml/hr per calories intake, will change diet status to NPO.
[2019-07-18] MEDS: Nepro With Carb Steady 1 Liter Bottle GT SCH (09:22)
[2019-07-18] MEDS: FLUCONAZOLE 200MG/100ML 100 ML IV SCH (09:22)
[2019-07-18] MEDS: BUMETANIDE INJECTION 12.5 MG in GIVE UN-DILUTED 0 ML IV SCH (09:55)
[2019-07-18] MEDS: fentaNYL Drip 2500mCg/250mlNS 250 ML IV SCH ×2 (09:55→22:17)
[2019-07-18] MEDS ORDERED: ASPirin 81 mg TAB PO SCH (10:00)
[2019-07-18] MEDS ORDERED: ENOXAPARIN SOD 30 MG/0.3 ML SYRINGE SC SCH (10:00)
--- NOTE | 2019-07-18 10:00 | NUR ---
Mouth care provided, reposition as well.
[2019-07-18] MEDS: IRON SUCROSE COMPLEX 200 MG in SODIUM CHL 0.9% 100 ML IV SCH (10:59)
[2019-07-18] MEDS ORDERED: POTASSIUM CHL 20MEQ/100ML 100 ML IV SCH (11:30)
--- NOTE | 2019-07-18 11:35 | NUR ---
Called and left the message to Dr. Hill regarding lab result, plt [phone] and would like to confirm with MD about ASA and Lovenox.
--- NOTE | 2019-07-18 11:48 | NUR ---
Dr. Calderon at the bedside, will cancel Potassium 40 mEq per order from , made aware that patient already got Potassium 40 mEq in since this morning.
--- NOTE | 2019-07-18 12:10 | NUR ---
Dr. Hill ordered D/C ASA and Lovenox, will continue to monitor for bleeding and hematuria and care.
--- NOTE | 2019-07-18 13:43 | NUR ---
Mouth care provided, reposition, NG tube checked, no content left, also checked position before giving medication as scheduled. Continue Nephro1.8 terese at 40 ml/hr.
--- NOTE | 2019-07-18 15:15 | NUR ---
Respiratory note: RN TITRATED FIO2 TO 50%
--- NOTE | 2019-07-18 15:25 | NUR ---
Dr. Shine at the bedside, seen and made aware about desaturation O2 saturation 85-86%, stated that okay to increase FiO2 to keep O2 saturation >90%. Increased FiO2 to 50% at this time. Received a call back from Dr. Calderon. made aware about desaturation , MD okay to increase Bumex to 1 mg/hr.
--- NOTE | 2019-07-18 15:35 | NUR ---
Dr. Hill at the bedside, seen patient at this time, received order for start Lovenox 30 mg SQ Daily start tomorrow.
[2019-07-18] MEDS: BUMETANIDE INJECTION 25 MG in GIVE UN-DILUTED 0 ML IV SCH (15:41)
[2019-07-18] MEDS: MIDAZOLAM DRIP 50 mg/50mL 50 ML IV SCH (16:12)
[2019-07-18] MEDS: DOPamine 1600MCG/ML D5W 250 ML IV SCH (16:17)
--- NOTE | 2019-07-18 16:38 | NUR ---
O2 saturation 94-95% with FiO2 50%, will continue to monitor O2 saturation and I/O after increased Bumex to 1 mg/hr.
--- NOTE | 2019-07-18 18:21 | NUR ---
After changed position, lying on right side , O2 saturation 98-99%, decreased FiO2 35%, will continue to monitor and care, urine output =2150 ml, continue Bumex 1mg/hr. EKG showing Sinus bradycardia to SR with rare PAC, HR 55-65/min, SBP 130-150 mmHg, no fever noted, RR 16 /min as ventilator setting STV 450-460 ml, PIP 20-30 mmHg. Opened her eyes when calling her name or talking to her or touching, continue sedation and ventilator: AC rate 16, TV 450, FiO2 35%, Peep 10, Propofol iv 20 mcg/kg/min, Fentanyl iv 200 mcg/hr. Continue Dopamine iv 2 mcg/kg/min and Bumex iv 1 mg/hr.
--- NOTE | 2019-07-18 19:45 | NUR ---
Opening Shift Note Assumed care of patient, intubated and sedated. Breathing on ETT via AC mode ventilator, even and synchronized, No S/S of distress/SOB or pain. NGT to right nare with continue feeding of Nepro at 40ml/hr, no residual noted. TLC at right IJ, small oozing noted at Biopatch. Flexi seal in place with liquid brown stool in the tubing. Bruce's catheter hung to gravity with dark georgette urine with sediments and small amount of dark red hematuria. Bed in low position, fall and safety precaution in place, all alarms are audible. No visitor allowed at this time, will continue to monitor for changes Q1hr and PRN.
--- NOTE | 2019-07-18 21:30 | NUR ---
Condition update Pt stable with RASS moderate sedation. Pt with period of desaturation after activities, needed rest about 10's mins for POX to increase above 90%. Scant sputum. Small amount of clear saliva. Flexi seal slightly leaking jay rectal area, jay care, and pad changed. Continue care.
[2019-07-19] VITALS (99 sets, daily range): BP systolic 129–163; BP diastolic 50–74
--- NOTE | 2019-07-19 00:10 | NUR ---
RT paged: RN paged RT d/t patient saturating around 88% for the past half hour. RN increased FIO2 from 35% to 40% per Dr. Mercedes communication order. RN will continue to monitor and assess patient. Addendum: 07/19/19 at 0657 by Jose Osullivan RN 00.45am RT assessed on Pt and increased O2 to 45%, POX increased to 94%. Will continue monitoring.
[2019-07-19] MEDS: BUMETANIDE INJECTION 25 MG in GIVE UN-DILUTED 0 ML IV SCH (02:07)
[2019-07-19 04:02] LABS: Basophils # (auto) 0 10 ^3/uL (0-0.2); Eosinophils # (auto) 0.2 10 ^3/uL (0-0.8); Lymphocytes # (auto) 0.6 10 ^3/uL (0.4-5.4); Monocytes # (auto) 0.6 10 ^3/uL (0-1.3)
[2019-07-19 04:04] LABS: Basophils % (auto) 0.2 % (0.0-2.0); Hematocrit 24.5 % (36.0-46.0); Lymphocytes % (auto) 10.2 % (10.0-50.0); Mean Corpuscular Hemoglobin 25.1 pg (28.0-32.0); Mean Corpuscular Hgb Conc. 32.8 g/dL (32.0-36.0); Mean Corpuscular Volume 76.7 fL (80.0-100.0); Monocytes % (auto) 10.4 % (0.0-12.0); Neutrophils # (auto) 4.6 10 ^3/uL (1.6-8.6); Neutrophils % (auto) 76.2 % (37.0-80.0); Nucleated Red Blood Cells % 0.1 %; Platelet Count (auto) 35 10^3/uL (140-450); Red Blood Cells 3.19 10^6/uL (4.0-5.20); Red Cell Distribution Width 16.3 % (11.8-14.3)
[2019-07-19 04:18] LABS: Albumin 2.1 g/dL (3.4-5.0); Calcium 8.3 mg/dL (8.5-10.1); Potassium 3.2 mmol/L (3.5-5.1)
[2019-07-19 04:19] LABS: INR 0.99 (0.9-1.15); Partial Thromboplastin Time 31.3 sec (23.64-32.05)
[2019-07-19 04:21] LABS: BUN/Creatinine Ratio 11.9; Bilirubin, Total 0.3 mg/dL (0.2-1.0)
--- NOTE | 2019-07-19 04:45 | NUR ---
Patient bathe/linen change Patient given complete bath with CHG wipes. EKG electrodes changed. Skin integrity assessed for any changes, noted small few red line skin tears at abdominal fold and groin area, z-guard applied after cleaning. Merissa rectal area with slightly macerated, z-guard applied after wipe cleaned. Bruce's catheter care done. Bruce's catheter warp changer changed. NGT tape changed, positive position, marked at 63cms. Mouth care done, noted moderated amount of dark red blood with saliva in the deep throat. Complete linens changed. Patient repositioned to prevent pressure ulcer. Pt tolerated well with pre-oxygenated 2mins x1. Addendum: 07/19/19 at 0639 by Jose Osullivan RN SCD applied to both legs.
[2019-07-19] MEDS ORDERED: POTASSIUM CHL 20MEQ/100ML 100 ML IV ONE (05:30)
--- NOTE | 2019-07-19 06:00 | NUR ---
Summary/ K replaced EKG and HR stable with occasional PAC, PVC, rate at 57-70's. SBP on the high side 120's - 150's at rest. Breathing stable with ventilator AC mode and sedation. Periods of desaturation after activities; suction, coughing and turning to the side, 70's - 80's%. POX increased above 90% after rest ~10-15 mins. Occasional small amount of dark red Blood mixed with saliva in the deep throat. Dark red urine better and subsided about midnight. Pt was with clear yellowish urine since midnight. AM Lab, K 3.0, ordered K rider for Pt as per communication order, will replace Pt with K rider 20 mEq. Will continue care and endorse to day shift.
[2019-07-19] MEDS: PIPERACILLIN-TAZOB 2.25GM 50 ML IV SCH ×3 (06:08→21:56)
[2019-07-19] MEDS: PROPOFOL 100 ML IV SCH ×3 (06:09→18:15)
[2019-07-19] MEDS: CALCIUM ACETATE 667 MG CAP NG SCH ×3 (06:09→21:56)
[2019-07-19] MEDS: InsuLIN REG 1unit/0.01ml Soln (100units/ml) SC SCH ×4 (06:33→21:57)
[2019-07-19] MEDS: ACCU-CHEK COMFORT CURVE STRIP VI SCH ×4 (06:35→21:57)
--- NOTE | 2019-07-19 07:11 | NUR ---
REPORT RECEIVED FROM SQL SERVER CONSULTANT RN
[2019-07-19] MEDS: FLUCONAZOLE 200MG/100ML 100 ML IV SCH (09:33)
[2019-07-19] MEDS: DOPamine 1600MCG/ML D5W 250 ML IV SCH ×2 (09:45→11:49)
--- NOTE | 2019-07-19 09:52 | NUR ---
DR. MORENO AT BEDSIDE
[2019-07-19] MEDS: Nepro With Carb Steady 1 Liter Bottle GT SCH (10:00)
[2019-07-19] MEDS ORDERED: ENOXAPARIN SOD 30 MG/0.3 ML SYRINGE SC SCH (10:00)
[2019-07-19] MEDS: fentaNYL Drip 2500mCg/250mlNS 250 ML IV SCH (10:10)
[2019-07-19] MEDS: POTASSIUM CHL 20MEQ/100ML 100 ML IV SCH ×2 (10:10→11:49)
--- NOTE | 2019-07-19 10:24 | NUR ---
SEDATION VACATION HELD AT THIS TIME PATIENT HEMODYNAMICALLY UNSTABLE Addendum: 07/19/19 at 1025 by Samy Bahena RN Amended: Links added.
[2019-07-19] MEDS: IRON SUCROSE COMPLEX 200 MG in SODIUM CHL 0.9% 100 ML IV SCH (12:02)
--- NOTE | 2019-07-19 14:53 | NUR ---
DR. POSADAS PAGED AWAITING CALLBACK
[2019-07-19] MEDS: LEVOTHYROXINE SODIUM 100 MCG/5 ML INJ IV SCH (15:04)
--- NOTE | 2019-07-19 15:22 | NUR ---
DR. ANDERSON AT BEDSIDE
--- NOTE | 2019-07-19 15:26 | NUR ---
DR. CUAUHTEMOC ESTES UPDATED ON PATIENT STATUS AND LAB WORK. PER MD HOLD BLOOD THINNERS AT THIS TIME
--- NOTE | 2019-07-19 15:30 | NUR ---
VENT CHANGES DECREASED PEEP TO +8 AND TITRATED FIO2 40% PER DR HIGH'S ORDERS. PT TOLERATING CHANGES WELL, MAINTAINING SPO2 94%. RN ART MADE AWARE OF CHANGES. PER MD, WEAN SEDATION AND CPAP TRIAL WHEN PT IS AWAKE, RN IS AWARE. ALARMS ADJUSTED AND AUDIBLE TO NURSE'S STATION. WILL ENDORSE PT CARE TO NOC SHIFT RT.
[2019-07-19] MEDS: MIDAZOLAM DRIP 50 mg/50mL 50 ML IV SCH (16:12)
--- NOTE | 2019-07-19 16:48 | NUR ---
COMPLETE LINEN CHANGE PERFORMED
--- NOTE | 2019-07-19 19:40 | NUR ---
RECEIVED REPORT AND ASSUMED CARE; SEE INTERVENTIONS FOR ASSESSMENT; SEE IV SPREADSHEET FOR GTTS; VS STABLE AT THIS TIME WITH PT. ON DOPAMINE 2MCG-SET RATE FOR RENAL PERFUSION; WILL CONT. TO MONITOR.
[2019-07-19] MEDS: ATORVASTATIN 20 MG TAB PO SCH (21:57)
[2019-07-20] VITALS (84 sets, daily range): BP systolic 119–210; BP diastolic 55–140
[2019-07-20] MEDS: CALCIUM ACETATE 667 MG CAP NG SCH ×3 (06:23→21:25)
[2019-07-20] MEDS: ACCU-CHEK COMFORT CURVE STRIP VI SCH ×4 (06:23→21:26)
[2019-07-20] MEDS: InsuLIN REG 1unit/0.01ml Soln (100units/ml) SC SCH ×4 (06:23→21:27)
[2019-07-20] MEDS: PIPERACILLIN-TAZOB 2.25GM 50 ML IV SCH ×3 (06:23→21:25)
[2019-07-20 06:27] LABS: Hemoglobin 8.3 g/dL (12.2-16.2)
[2019-07-20 06:29] LABS: Hematocrit 25.4 % (36.0-46.0); Mean Corpuscular Hemoglobin 25.3 pg (28.0-32.0); Mean Corpuscular Hgb Conc. 32.6 g/dL (32.0-36.0); Mean Corpuscular Volume 77.7 fL (80.0-100.0); Platelet Count (auto) 24 10^3/uL (140-450); Red Blood Cells 3.27 10^6/uL (4.0-5.20); Red Cell Distribution Width 16.1 % (11.8-14.3); White Blood Cell 5.4 10^3/uL (4.4-10.8)
[2019-07-20 06:44] LABS: Basophils % (manual) 0 (0.0-2.0); Blast Cells 0; Metamyelocytes % 0; Myelocytes % 0; Promyelocytes % 0; Reactive Lymphocytes 0
[2019-07-20 06:46] LABS: Albumin 2.1 g/dL (3.4-5.0); Calcium 8.7 mg/dL (8.5-10.1); Potassium 3.6 mmol/L (3.5-5.1)
[2019-07-20 06:51] LABS: BUN/Creatinine Ratio 12.3; Bilirubin, Total 0.3 mg/dL (0.2-1.0); Phosphorus 4.3 mg/dL (2.5-4.90); Total Protein 6.4 g/dL (6.4-8.2)
[2019-07-20 07:30] LABS: Band Neutrophils % (manual) 2; Eosinophils % (manual) 3 (0-7); Lymphocytes % (manual) 17 (10.0-50.0); Monocytes % (manual) 5 (0-12)
--- NOTE | 2019-07-20 07:30 | NUR ---
OPENING SHIFT NOTE REPORT RECEIVED FROM MEDICAL OFFICE SUPERVISOR RN, MORNING ASSESSMENT PERFORMED AND DOCUMENTED. 63 YEAR OLD FEMALE, MECHANICALLY VENTILATED, SEDATED. SBP IN THE 160'S - 170'S. WILL CONTINUE TO MONITOR VITAL SIGNS AND NOTIFY MD. HARMON CATHETER PATENT AND DRAINING CLEAR/YELLOW SEDIMENT URINE. COMFORT MEASURES PROVIDED, FALL AND SAFETY PRECAUTIONS IN PLACE. WILL CONTINUE TO MONITOR DURING SHIFT.
[2019-07-20] MEDS: PROPOFOL 100 ML IV SCH (08:59)
[2019-07-20] MEDS: PANTOPRAZOLE 40 MG/10 ML VIAL INJ IV SCH (09:20)
[2019-07-20] MEDS: CITALOPRAM HYDROBR 20 MG TAB PO SCH (09:20)
[2019-07-20] MEDS: FLUCONAZOLE 200MG/100ML 100 ML IV SCH (09:20)
[2019-07-20] MEDS: LEVOTHYROXINE SODIUM 100 MCG/5 ML INJ IV SCH (09:20)
--- NOTE | 2019-07-20 09:30 | NUR ---
SEDATION VACATION SEDATION VACATION PERFORMED PER PROTOCOL, DIPROVAN HELD AND FENTANYL DECREASED TO 100 MCG/HR. WILL MONITOR. Addendum: 07/20/19 at 1039 by Jazmin Taylor RN Amended: Links added.
[2019-07-20] MEDS: Nepro With Carb Steady 1 Liter Bottle GT SCH (10:00)
[2019-07-20] MEDS: DexMEDEtomidine 400 MCG in D5W 5% 96 ML IV SCH ×3 (10:30→22:13)
--- NOTE | 2019-07-20 10:30 | NUR ---
RESTART SEDATION/INCREASED HR SEDATION VACATION UNSUCCESSFUL. PATIENT REMAINED ON FENTANYL AT 100 MLS/HR - INCREASED HEART RATE AND BLOOD PRESSURE SBP IN THE LOW 200'S. THIS NURSE IN COVTN POSITIVE ROOM AND NURSE JAQUELIN PAGED DR Gómez RUBY FOR ORDERS. PATIENT PLACED BACK ON SEDATION AT RATE POST SEDATION VACATION. AWAITING MD RESPONSE.
--- NOTE | 2019-07-20 10:35 | NUR ---
RETURN CALL FROM HOSPITALIST NOTIFIED OF INCREASED HEART RATE AFTER SEDATION VACATION ATTEMPT, ORDERS RECEIVED AND WILL BE CARRIED OUT. AT THIS TIME, BLOOD PRESSURE STABILIZED.
[2019-07-20] MEDS: IRON SUCROSE COMPLEX 200 MG in SODIUM CHL 0.9% 100 ML IV SCH (11:40)
[2019-07-20] MEDS: hydrALAZINE HCL 20 MG/ML VL IV PRN (11:42)
--- NOTE | 2019-07-20 12:45 | NUR ---
HEMATOLOGY/HOSPITALIST AT BEDSIDE DR GRAHAM AND DR Gómez RUBY IN [place] NURSE STATION, BOTH MDS UPDATED ON PATIENT'S STATUS, DRIPS, VS AND MORNING LABS. DR RUBY ALSO UPDATED ON SEDATION VACATION ATTEMPT AND NEED TO ADD PRECEDEX. DR RUBY VERBALIZED UNDERSTANDING. DR RUBY ALSO AWARE OF DOPAMINE DRIP HELD TO MONITOR VS CLOSELY PATIENT'S BLOOD PRESSURE CONTINUES TO INCREASE IN THE 180'S EVEN AFTER HYDRALAZINE ADMINISTRATION. DR RUBY VERBALIZED UNDERSTANDING. NO ORDERS FROM DR GRAHAM AT THIS TIME.
[2019-07-20] MEDS: methylPREDNISolone SOD SUCC 125 MG/2 ML VL IV SCH ×2 (14:03→21:24)
--- NOTE | 2019-07-20 14:53 | NUR ---
Nutrition Follow-up Wt.: 123.0 kg Pt is sedated and on ventilator. Per RN, pt was receiving TF with Nepro Carb Steady 1.8 Fred @40 ml/hr goal rate, tolerating it well, providing 1728 kcal, 78 g protein, and 698 ml water. Current rate provides adequate energy and protein needs. Noted propofol currently running @ 5 ml/hr providing 132 additional kcal. Will continue to monitor NPO status, skin status, pertinent labs and weight trends. Will f/u in 2 to 3 days. Est energy needs: 3165-3784 kcals (12-15 kcal/kg BW) Est protein needs: 83-108 gms/day (1.0-1.3 gm/kg Adj.BW) Labs 07/19: BUN 45 H, Cr 3.66 H, GFR 13 L, Glucose 171 H, TP WNL, Albumin 2.1 L. Skin: Micah scale 13, mod risk, pt with blister, DTI. Please refer to wound assessment report for full details. GI: Pt had BM on 07/19/19, per clinical documentation spec. PES: 1) Inadequate nutrient intake r/t current nutrient needs aeb pt sedated, intubated, NPO - (RESOLVED) 2) Obesity r/t energy intake in excess of energy needs aeb 206% IBW and BMI of 44.3 kg/m2 3) Altered nutrition related lab values r/t current medical condition aeb hyperchloremia, elevated RFTs, low GFR, hypocalcemia, elevated troponin, hypoproteinemia, severe hypoalbuminemia.
--- NOTE | 2019-07-20 15:22 | NUR ---
Family updated on pt status Family of TERRANCE MURGUIA updated on patient's status and condition after password verification. All questions and concerns addressed. Jovon patient's son verbalized understanding. Jovon also notified this nurse that "last time my mom was intubated, when they removed the tube, she developed some sort of psychosis". Jovon also noted that patient does not have any allergic reactions to medications. JOVON - [phone]
[2019-07-20] MEDS: BUMETANIDE INJECTION 25 MG in GIVE UN-DILUTED 0 ML IV SCH (15:30)
[2019-07-20] MEDS: DOPamine 1600MCG/ML D5W 250 ML IV SCH ×3 (15:49→22:14)
[2019-07-20] MEDS: MIDAZOLAM DRIP 50 mg/50mL 50 ML IV SCH (15:50)
--- NOTE | 2019-07-20 16:36 | NUR ---
CPAP TRIAL/CONTACT PULMONOLOGY REGARDING CPAP TRIAL AND PATIENT'S INCREASE IN RESPIRATIONS, WORK OF BREATHING, SECRETIONS AND DECREASE OXYGENATION. DR HIGH AWARE OF PRECEDEX DRPATRICE ONLY AT THE TIME OF CPAP TRIAL AND PATIENT ABLE TO FOLLOW SIMPLE COMMANDS BUT NOT STAYING AWAKE. ORDERS TO PLACE PATIENT BACK ON AC MODE RECEIVED. Carlos DEAL AT BEDSIDE AND MADE CHANGES. WILL CONTINUE TO MONITOR.
--- NOTE | 2019-07-20 16:55 | NUR ---
CALL FROM PHARMACY/PAGED HOSPITALIST PHONE CALL RECEIVED FROM SANDIE, PHARMACISTS REGARDING ANTIBIOTIC AND THROMBOCYTOPENIA. PER SANDIE, REQUEST TO CHANGE ZOSYN TO EITHER ROCEPHIN OR LEVAQUIN. PAGED DR. Gómez RUBY TO NOTIFY, AWAITING RESPONSE.
--- NOTE | 2019-07-20 18:22 | NUR ---
PULMONOLOGY AT BEDSIDE DR HIGH UPDATED ON PATIENT'S STATUS, VS AND CURRENT DRIPS. DR HIGH WAS AGAIN REMINDED OF FINDINGS DURING CPAP TRIAL. ORDERS FOR CPAP TRIAL IN THE AM AND TO HOLD OFF ON DOPAMINE AND MONITOR VS.
[2019-07-20] MEDS ORDERED: DOPamine 1600MCG/ML D5W 250 ML IV SCH (18:45)
--- NOTE | 2019-07-20 19:44 | NUR ---
RECEIVED PT FROM DAY RN POC REVIEWED
--- NOTE | 2019-07-20 19:58 | NUR ---
PT OBSERVED RESTING WITH HOB UP RESP EVEN AND UNLABORED ON VENT SETTINGS AC-16, TV 450, FIO2 40% , AROUSABLE TO VERBAL COMMANDS, NO S/S OF DISTRESS, REORIENTED PT TO POC, BUMEX INFUSING AT 4ML/HR, PRECEDEX INFUSING AT 15.25 ML/HR,, F/C DRAINING CLEAR YELLOW, NO S/S OF PAIN OR DISCOMFORT.
[2019-07-20] MEDS: ATORVASTATIN 20 MG TAB PO SCH ×2 (21:25→22:14)
[2019-07-20] MEDS: fentaNYL Drip 2500mCg/250mlNS 250 ML IV SCH (21:28)
--- NOTE | 2019-07-20 22:00 | NUR ---
REPOSITIONED, SUCTIONED, EVENING MEDS GIVEN ORDERED
--- NOTE | 2019-07-20 23:01 | NUR ---
REPORT GIVEN TO PATTI BETANCOURT POC REVIEWED, PT TRANSPORTED WITH RT AND CHARGE NURSE
--- NOTE | 2019-07-20 23:05 | NUR ---
RECEIVED PATIENT INTO ICU BED 102. [facility] AIR BED. REPOSITIONED THE PATIENT TO HER RIGHT SIDE. OPENS EYES A LITTLE. FACIAL NOTIFICATION DURING ORAL CARE. CLEAR ORAL SECRETIONS. LUNGS CLEAR AND DIMINISHED. ETT TO VENTILATOR. NO NEW VENTILATOR CHANGES. RIGHT NARE NGT WITH NEPRO . NO TUBE FEED RESIDUAL. ABDOMEN ROUND , LARGE AND SOFT. VERY HYPOACTIVE BOWEL SOUNDS. FLEXASEAL IN. SEAL IS GOOD. HARMON IN PLACE TO DOWN DRAIN BAG. WRINKLES EDEMETOUS SKIN. RIJ TLC WITH CLEAN CURRENT DRESSING. SINUS BRADYCARDIA AT 59. NO ECTOPY. SBP WITHIN PARAMETERS.
[2019-07-21] VITALS (70 sets, daily range): BP systolic 140–187; BP diastolic 64–84
--- NOTE | 2019-07-21 | NUR ---
VSS. WAKES UP, MOVES EXTREMITIES.
--- NOTE | 2019-07-21 00:05 | NUR ---
ORAL CARE. SUCTIONED ETT FOR A TINY AMOUNT OF CLOUDY FLUID. FLEXASEAL DRAINING. PATIENT REPOSITIONED TO BACK. MOVING ALL EXTREMITIES.
--- NOTE | 2019-07-21 02:00 | NUR ---
CHG BATH. LINEN CHANGE. SILICONE LOTION TO SKIN. SCDS OFF FOR BATH. ERIC. STIRS EXTREMITIES AND THEN RELAXES. NEVER BRINGS ARMS UP TO ETT. BENDS LEGS. NSR WITHOUT ECTOPY. NO CHANGE IN STATUS.
--- NOTE | 2019-07-21 04:00 | NUR ---
HENRI. WAKES UP AND MOVES ALL EXTREMITIES. AC OF 16 AND BREATHES HIGH 20. CHG BATH DONE, NOTED SKIN UNDER BREAST: NO BREAKDOWN. SKIN UNDER PANUS: VERY SMALL CRACKS INTERMITTENTLY ACROSS THE PANUS LINE. POSTERIOR SKIN OF THE ANTERIOR WENDIE AREA IS RED. FLEXASEAL IS HOLDING GOOD SEAL. HAD TO STRIP THE BROWN LIQUID STOOL THROUGH THE TUBING. SACRAL AREA IS MUTI COLORED BETWEEN DARK BLACK AND RED. OPTIFOAM OVER LARGE AREA OF DISCOLORATION. NO DRNG, NO BROKEN SKIN. BOTH FOREARMS HAVE MULTIPLE HYPER PIGMENTED AREAS. ALL PULSES PALPABLE. EXTREMITIES ARE WARM. SCDS PUT BACK ON. NPO. HARMON OUTPUT IS A GREEN/YELLOW, CLEAR, ADEQUATE AMOUNT. TRIPLE LUMEN DRESSING IS CLEAN, DRY, NO DRNG. ORAL CAVITY A LITTLE DRY. ORAL CARE DONE.
[2019-07-21 04:14] LABS: Hematocrit 24.6 % (36.0-46.0)
[2019-07-21 04:17] LABS: Mean Corpuscular Hemoglobin 25.4 pg (28.0-32.0); Mean Corpuscular Hgb Conc. 32.7 g/dL (32.0-36.0); Mean Corpuscular Volume 77.6 fL (80.0-100.0); Platelet Count (auto) 30 10^3/uL (140-450); Red Blood Cells 3.17 10^6/uL (4.0-5.20); White Blood Cell 4.8 10^3/uL (4.4-10.8)
[2019-07-21 04:38] LABS: Potassium 3.6 mmol/L (3.5-5.1)
[2019-07-21 04:42] LABS: Basophils % (manual) 0 (0.0-2.0); Blast Cells 0; Eosinophils % (manual) 0 (0-7); Metamyelocytes % 0; Myelocytes % 0; Promyelocytes % 0; Reactive Lymphocytes 0
[2019-07-21 04:44] LABS: Albumin 2.1 g/dL (3.4-5.0); BUN/Creatinine Ratio 15.4; Bilirubin, Total 0.3 mg/dL (0.2-1.0); Calcium 8.7 mg/dL (8.5-10.1); Total Protein 6.3 g/dL (6.4-8.2)
[2019-07-21] MEDS: methylPREDNISolone SOD SUCC 125 MG/2 ML VL IV SCH ×3 (05:19→22:07)
[2019-07-21] MEDS: PIPERACILLIN-TAZOB 2.25GM 50 ML IV SCH (05:19)
[2019-07-21] MEDS: CALCIUM ACETATE 667 MG CAP NG SCH ×3 (05:20→22:00)
[2019-07-21] MEDS: DexMEDEtomidine 400 MCG in D5W 5% 96 ML IV SCH (05:36)
[2019-07-21] MEDS: hydrALAZINE HCL 20 MG/ML VL IV PRN ×2 (05:37→14:06)
[2019-07-21 06:42] LABS: Band Neutrophils % (manual) 1; Lymphocytes % (manual) 8 (10.0-50.0); Monocytes % (manual) 4 (0-12)
[2019-07-21] MEDS: InsuLIN REG 1unit/0.01ml Soln (100units/ml) SC SCH ×4 (06:53→22:00)
[2019-07-21] MEDS: ACCU-CHEK COMFORT CURVE STRIP VI SCH ×4 (06:53→22:08)
--- NOTE | 2019-07-21 07:30 | NUR ---
OPENING SHIFT NOTE REPORT RECEIVED FROM AIRPLANE CLEANER RN, MORNING ASSESSMENT PERFORMED AND DOCUMENTED. 63 YEAR OLD FEMALE, MECHANICALLY VENTILATED OFF SEDATION RUNNING PRECEDEX AT 0.5 MCG/HR. SBP IN THE 160'S - 170'S, WILL MONITOR THE LAST TIME PRN BP MED WAS ADMINISTERED BY AIRPLANE CLEANER RN. PATIENT OPENS EYES WHEN CALLED BY NAME AND FOLLOWS SIMPLE COMMANDS, ORDERS FOR CPAP TRIAL THIS MORNING RECEIVED, WILL COORDINATE WITH Carlos FORRESTER. THIS NURSE WILL CONTINUE TO MONITOR VITAL SIGNS AND NOTIFY . HARMON CATHETER PATENT AND DRAINING CLEAR/CHIP URINE WITH SEDIMENT. COMFORT MEASURES PROVIDED, FALL AND SAFETY PRECAUTIONS IN PLACE. WILL CONTINUE TO MONITOR DURING SHIFT.
--- NOTE | 2019-07-21 09:16 | NUR ---
SEDATION VACATION CPAP TRIAL IN PROCESS. Addendum: 07/21/19 at 0916 by Jazmin Taylor RN Amended: Links added.
--- NOTE | 2019-07-21 09:43 | NUR ---
SPOKE WITH DR ANILA HIGH AWARE OF CPAP TRIAL ABG RESULTS, VS AND PATIENT FOLLOWING SIMPLE COMMANDS BUT FALLING BACK TO SLEEP. DR HIGH STATED "WAIT UNTIL I GET THERE, I SHOULD BE THERE WITHIN 30 MINUTES". Carlos FORRESTER AWARE.
[2019-07-21] MEDS: FLUCONAZOLE 200MG/100ML 100 ML IV SCH (09:52)
[2019-07-21] MEDS: CITALOPRAM HYDROBR 20 MG TAB PO SCH (09:53)
[2019-07-21] MEDS: Nepro With Carb Steady 1 Liter Bottle GT SCH (09:53)
[2019-07-21] MEDS: LEVOTHYROXINE SODIUM 100 MCG/5 ML INJ IV SCH (09:53)
[2019-07-21] MEDS: PANTOPRAZOLE 40 MG/10 ML VIAL INJ IV SCH (09:53)
--- NOTE | 2019-07-21 10:10 | NUR ---
DR HIGH AT BEDSIDE UPDATE PROVIDED BY Carlos FORRESTER.
[2019-07-21] MEDS ORDERED: EPINEPHrine HCL 0.5 ML NEB ONE (10:35)
--- NOTE | 2019-07-21 11:26 | NUR ---
Family updated on pt status Family of TERRANCE MURGUIA updated on patient's status and condition after password verificastion. All questions and concerns addressed. Jovon verbalized understanding.
[2019-07-21] MEDS ORDERED: EPINEPHrine HCL 0.5 ML NEB NEB ONE (11:30)
[2019-07-21] MEDS ORDERED: ALBUTEROL SULF 2.5 MG/0.5ML(0.5%) NEB SOLN ONE (11:49)
[2019-07-21] MEDS ORDERED: IPRATROPIUM BROM 0.5 MG/2.5ML INH SOL ONE (11:49)
[2019-07-21] MEDS: ALBUTEROL SULF 2.5 MG/0.5ML(0.5%) NEB SOLN NEB SCH ×2 (12:00→18:35)
[2019-07-21] MEDS: IPRATROPIUM BROM 0.5 MG/2.5ML INH SOL NEB SCH ×2 (12:00→18:35)
[2019-07-21] MEDS ORDERED: levoFLOXacin 500MG 100 ML IV SCH (13:00)
[2019-07-21] MEDS: BUMETANIDE INJECTION 25 MG in GIVE UN-DILUTED 0 ML IV SCH (15:30)
[2019-07-21] MEDS: PROPOFOL 100 ML IV SCH (16:03)
[2019-07-21] MEDS: MIDAZOLAM DRIP 50 mg/50mL 50 ML IV SCH (16:12)
--- NOTE | 2019-07-21 16:57 | NUR ---
HOSPITALIST IN ICU NURSE STATION DR Gómez RUBY UPDATED ON PATIENT'S STATUS, VS AND EXTUBATION. ORDERS RECEIVED TO RESTART SOME HOME MEDICATIONS MARKED BY DR RUBY, PT, SWALLOW EVALUATION AND TELE DOWNGRADE. CHARGE NURSE AWARE.
--- NOTE | 2019-07-21 17:26 | NUR ---
ATTEMPT TO CALL IN REPORT UNSUCCESSFUL. TITUS STATED SHE IS "IN THE MIDDLE OF GIVING MEDICATIONS CAN YOU CALL BACK". WILL ATTEMPT TO CALL IN A FEW MINUTES, CHARGE NURSE AWARE.
--- NOTE | 2019-07-21 18:00 | NUR ---
Received a report from Jazmin BETANCOURT ICU.
--- NOTE | 2019-07-21 18:27 | NUR ---
ICU patient trans to floor TERRANCE MURGUIA transferred to [facility] room 279a via gurney (specialty mattress) on bus driver/monitor and portable 02. All patient personal belongings transferred with patient to receiving floor. Patient care endorsed to ASIA Norwood after report given. Patient alert and oriented x2 able to follow simple commands, no distress noted, respirations even and unlabored on 3 liters oxygen via nasal cannula. Fall and safety precautions in place, bed in lowest position, call light within reach. Patient's son Jovon notified of transfer to Jovon delgado verbalized understanding. All questions and concerns address.
--- NOTE | 2019-07-21 18:33 | NUR ---
Received patient from ICU, patient awake, alert to her name, place and verbally responsive. Pt placed on 6 L , o2 sat 91 %. No respiratory distress noted. Bruce in place draining clear yellow urine. Flexi-seal in place, draining brown stool. Skin is warm and dry to touch. No c/o pain of pain at this time. Placed a call light within reach. Will continue to monitor.
[2019-07-21] MEDS ORDERED: CYCLOBENZAPRINE HCL 10 MG TAB PO PRN (18:45)
--- NOTE | 2019-07-21 19:45 | NUR ---
Opening Shift Note Assumed care of patient, awake, oriented to self, reoriented to place, time and situation, clear speech, follows directions, able to move bilateral upper and lower extremities independently. Oxygen on at 5L via NC with even and unlabored respirations, no S/S of distress/SOB. Noted +2 pitting edema to bilateral arms, elevated on pillows. Flexiseal intact with brown stool. Bruce intact and draining to gravity with yellow urine. SCD's on to bilateral legs. Right IJ triple lumen intact infusing Bumex per orders. Patient on specialty air mattress with bed in lowest locked position with side rials up x 3 and call light within reach. Instructed on POC and to call for assist PRN, will continue to monitor for changes Q1hr and PRN.
[2019-07-21] MEDS: MONTELUKAST SODIUM 10 MG TAB PO SCH (22:00)
[2019-07-21] MEDS: fentaNYL Drip 2500mCg/250mlNS 250 ML IV SCH (22:08)
--- NOTE | 2019-07-21 22:30 | NUR ---
RT NOTE: RT PAGED TO BEDSIDE FOR OXYGEN DESATURATION. SPO2 80-82% ON 5L NASAL CANNULA. INCREASED WOB NOTED. RN STATED SHE WAS DOING DRESSING CHANGE DURING DESATURATION EPISODE. PT CHANGED TO 10L SIMPLE MASK, SPO2 INCREASED TO 92-93%. RN @ BEDSIDE AND AWARE. WILL CONT TO MONITOR AND TITRATE FIO2 TOLERATED.
--- NOTE | 2019-07-21 23:45 | NUR ---
RT NOTE: RT PAGED TO BEDSIDE FOR CONT OXYGEN DESATURATION. SPO2 87-89% ON 10L SIMPLE MASK. HOSPITALIST CALLED FOR ABG AND BIPAP ORDER. 1ST ATTEMPT ABG RESULTS CAME BACK MIXED VENOUS. PT PLACED ON BIPAP PRIOR TO 2ND ABG ATTEMPT DUE TO INCREASED WOB. INCREASED WOB DECREASED ONCE PT WAS PLACED ON BIPAP. RN AWARE OF NEW BIPAP ORDERS. PT PLACED ON BEDSIDE CONT PULSE. ALARMS ON AND AUDIBLE. WILL CONT TO MONITOR PT T/O SHIFT.
[2019-07-22] VITALS (7 sets, daily range): BP systolic 139–150; BP diastolic 64–88
[2019-07-22] MEDS: ALBUTEROL SULF 2.5 MG/0.5ML(0.5%) NEB SOLN NEB SCH ×4 (00:55→18:52)
[2019-07-22] MEDS: IPRATROPIUM BROM 0.5 MG/2.5ML INH SOL NEB SCH ×4 (00:55→18:52)
--- NOTE | 2019-07-22 02:00 | NUR ---
Rounds patient resting in bed with eyes closed, HOB elevated, even and unlabored respirations, bipap and continuous pulse ox on with RR 14 o2 sat 96%. Patient on tele monitor # 66 sinus rhythm HR 108. No s/s of respiratory distress. Bed in lowest locked position with side rails up x 3 and call light within reach, bed alarm on. Will continue to monitor. Addendum: 07/22/19 at 0506 by Alejandrina Dykes RN RN Patient on tele monitor #66 sinus tachycardia HR 108.
--- NOTE | 2019-07-22 04:00 | NUR ---
Rounds patient resting in bed with eyes closed, HOB elevated, even and unlabored respirations, bipap and continuous pulse ox on with RR 16 o2 sat 93%. Patient on tele monitor # 66 sinus tachycardia HR 107. No s/s of respiratory distress. Bed in lowest locked position with side rails up x 3 and call light within reach, bed alarm on. Will continue to monitor.
[2019-07-22] MEDS: LEVOTHYROXINE SODIUM 88 MCG TAB PO SCH (05:07)
[2019-07-22] MEDS: CALCIUM ACETATE 667 MG CAP NG SCH (05:07)
[2019-07-22] MEDS: methylPREDNISolone SOD SUCC 125 MG/2 ML VL IV SCH ×3 (06:25→22:12)
[2019-07-22] MEDS: ACCU-CHEK COMFORT CURVE STRIP VI SCH ×4 (06:25→22:13)
[2019-07-22] MEDS: InsuLIN REG 1unit/0.01ml Soln (100units/ml) SC SCH ×4 (06:37→22:14)
[2019-07-22 06:46] LABS: Basophils # (auto) 0 10 ^3/uL (0-0.2); Eosinophils # (auto) 0 10 ^3/uL (0-0.8); Lymphocytes # (auto) 0.3 10 ^3/uL (0.4-5.4); Monocytes # (auto) 0.4 10 ^3/uL (0-1.3); Neutrophils # (auto) 9.6 10 ^3/uL (1.6-8.6); Nucleated Red Blood Cells % 0.1 %
[2019-07-22 06:49] LABS: Hematocrit 23.6 % (36.0-46.0); Hemoglobin 7.8 g/dL (12.2-16.2); Lymphocytes % (auto) 3.2 % (10.0-50.0); Mean Corpuscular Hemoglobin 25.7 pg (28.0-32.0); Mean Corpuscular Hgb Conc. 33.2 g/dL (32.0-36.0); Mean Corpuscular Volume 77.4 fL (80.0-100.0); Monocytes % (auto) 3.5 % (0.0-12.0); Neutrophils % (auto) 93.3 % (37.0-80.0); Platelet Count (auto) 64 10^3/uL (140-450); Red Blood Cells 3.04 10^6/uL (4.0-5.20); Red Cell Distribution Width 16.6 % (11.8-14.3); White Blood Cell 10.3 10^3/uL (4.4-10.8)
--- NOTE | 2019-07-22 06:51 | NUR ---
Closing Note patient resting in bed with HOB elevated, bipap and continuous pulse ox on with o2 sat at 91% RR22, even and unlabored respirations, no S/S of distress/SOB. Bilateral arms, elevated on pillows. Flexiseal intact with brown stool. Bruce intact and draining to gravity with yellow urine. SCD's on to bilateral legs. Right IJ triple lumen intact infusing Bumex per orders. Patient on specialty air mattress with bed in lowest locked position with side rials up x 3 and call light within reach.
[2019-07-22 07:05] LABS: Potassium 3.1 mmol/L (3.5-5.1)
[2019-07-22 07:11] LABS: Albumin 2.4 g/dL (3.4-5.0); BUN/Creatinine Ratio 16.2; Bilirubin, Total 0.3 mg/dL (0.2-1.0); Calcium 8.7 mg/dL (8.5-10.1); Total Protein 6.3 g/dL (6.4-8.2)
[2019-07-22] MEDS: CHOLECALCIFEROL (VITD3) 1,000UNIT=25mCg TAB PO SCH (10:00)
[2019-07-22] MEDS: MULTIPLE VITAMIN TAB PO SCH (10:00)
[2019-07-22] MEDS: PANTOPRAZOLE 40 MG TAB PO SCH (10:00)
[2019-07-22] MEDS: MAGNESIUM OXIDE 400 MG TAB PO SCH (10:00)
[2019-07-22] MEDS: HCTZ 25 MG TAB PO SCH (10:00)
[2019-07-22] MEDS: CITALOPRAM HYDROBR 20 MG TAB PO SCH (10:00)
[2019-07-22] MEDS: amLODIPine BESYLATE 5 MG TAB PO SCH (10:00)
[2019-07-22] MEDS: FLUCONAZOLE 200MG/100ML 100 ML IV SCH (10:10)
--- NOTE | 2019-07-22 11:15 | NUR ---
TURNED PATIENT WITH HOB AT 35 DEGREES TO CLEAN AND DO SKIN ASSESSMENT. PATIENT DID NOT TOLERATE WELL AND BEGAN TO DESATURATING WITH TACHYPNEA. RT IN AT BEDSIDE AND INCREASED FIO2 TO 100% TO GET SATURATION UP. PATIENT VITALS 160/84, HEART RATE 111, 98.2 TEMP AXILLARY, OXYGEN SATURATION 100% NOW AND RESPIRATIONS 34. PAGED DR. Elsa RUBY TO NOTIFY HIM OF PATIENT CHANGE IN CONDITION. WILL CONTINUE TO MONITOR CLOSELY.
[2019-07-22] MEDS: BUMETANIDE INJECTION 25 MG in GIVE UN-DILUTED 0 ML IV SCH (11:21)
--- NOTE | 2019-07-22 12:00 | NUR ---
CALLED PATIENTS SPOUSE AND LEFT MESSAGE TO RETURN CALL. CALLED PATIENTS SON RHIANNA MURGUIA AND NOTIFIED HIM OF THE CHANGE IN CONDITION OF HIS MOTHER AND THAT I HAD TRIED TO REACH HIS FATHER TO NOTIFY HIM OF CHANGE IN STATUS. HE STATED THAT IF HIS MOTHER NEEDED REINTUBATION THAT THEY WANT HER TO BE PLACED BACK ON THE VENTILATOR.
[2019-07-22] MEDS: CALCIUM ACETATE 667 MG CAP PO SCH ×2 (12:15→18:00)
[2019-07-22] MEDS ORDERED: FUROSEMIDE 20 MG/2 ML VIAL IV ONE (12:15)
--- NOTE | 2019-07-22 12:30 | NUR ---
PAGED DR. Elsa HAAS REGARDING PATIENT GOING TO ICU. HE CALLED BACK SAID ITS OK FOR PATIENT CAN GO TO [facility]. NOTIFIED FORM DRAFTER JERSON. SHE STATED HE IS GOING TO GO IN BED 262
--- NOTE | 2019-07-22 12:52 | NUR ---
PAGED DR. SOLIS TO NOTIFY HIM OF PATIENTS CHANGE IN CONDITION. WAITING FOR RETURN CALL.
--- NOTE | 2019-07-22 13:00 | NUR ---
GAVE COMPLETE SBAR TO LEONARDO BETANCOURT IN [place] FOR TRANSFER OF CARE.
[2019-07-22] MEDS: POTASSIUM CHL 20MEQ/100ML 100 ML IV SCH ×2 (13:49→15:57)
--- NOTE | 2019-07-22 13:50 | NUR ---
RECEIVED PATIENT FROM 279A PER BED ON BIPAP AT 50% FIO2 /7 - RESP NONLABORED AT 14/MIN - SAO2 92%. LUNGS CLEAR UPPER PATTON BILAT AND DIMINISHED BILAT LOWER PATTON. SEE REMAINDER OF ASSESSMENT ON SPREADSHEET. Addendum: 07/22/19 at 1945 by Lupe Cota RN PATIENT ORIENTED TO SELF ONLY.
--- NOTE | 2019-07-22 13:51 | NUR ---
TOOK PATIENT TO [facility] WITH RESPIRATORY THERAPIST, GERARD BERRIOS, SOSA KEENE AND MARCO HOOD. DR. SOLIS AT BEDSIDE UPON ARRIVAL. HANDED OVER CARE TO SHANA BETANCOURT.
--- NOTE | 2019-07-22 16:15 | NUR ---
11 BEAT JOHNNY VT, [id number] PLACED IN CHART.
--- NOTE | 2019-07-22 18:00 | NUR ---
PO MEDS HELD SINCE TRANSFER TO [facility] SECONDARY TO PATIENT ON BIPAP AND PREVENTION OF ASPIRATION.
--- NOTE | 2019-07-22 18:55 | NUR ---
PATIENT DISCONNECTED O2 MOMENTARILY AND DESATURATED FROM 89% ON 50% FIO2 TO 80% SAO2 - RT NOTIFIED AND GAVE SCHEDULED BREATHING TREATMENT - INCREASED FIO2 TO 65% - SAO2 97% AFTER BREATHING TREATMENT AND FIO2 INCREASED.
[2019-07-22] MEDS: MONTELUKAST SODIUM 10 MG TAB PO SCH (22:12)
[2019-07-22] MEDS: ATORVASTATIN 20 MG TAB PO SCH (22:18)
--- NOTE | 2019-07-22 22:50 | NUR ---
Respiratory note: FIO2 INCREASED TO 100%, SPO2 NOTED AT 87%. PROTECTA GEL PLACED, REDNESS NOTED ON NOSE. WILL CONTINUE TO MONITOR.
--- NOTE | 2019-07-22 23:30 | NUR ---
Respiratory note: RT HUGH TITRATED FIO2 TO 70%, STATED PT'S FIO2 IS 98%. WILL CONTINUE TO MONITOR.
--- NOTE | 2019-07-22 23:31 | NUR ---
NEW EPISODE OF DESATING TO 88-87 , RT AT BEDSIDE ADJUSTS PLACEMENT OF BOPAP MASK, PT REPOSITIONED WITH HOB HIGHER, O2 INCREASED TO 100%. PT BECOMES ANXIOUS, RR UP TO 40/MIN, HR UP TO 125/ MIN, BP 152/ 85. SAT 98 %, PT ADMITS TO PAIN, PT GIVEN 1 MG MS IV . BREATH SOUNDR VERY COARSE/ DIMMINISHED ON LT SIDE..
[2019-07-22] MEDS ORDERED: POTASSIUM CHLORIDE 20 MEQ, LIDOCAINE 1% (LOCAL ANESTH.) 2 ML in SODIUM CHL 0.9% 100 ML IV ONE (23:45)
--- NOTE | 2019-07-22 23:49 | NUR ---
PT A LITTLE CALMER, RR 34, STILL LABOURED, HR 117 SATS 95% ON 70% FIO2.REPOSITIONED ON RT SIDE, ARMS SUPPORTED WITH PILLOWS. PT IS ON BUMEX DRIP,APPROX 900 ML URINE IN THE BAG.
[2019-07-23] VITALS (13 sets, daily range): BP systolic 140–160; BP diastolic 17–117
[2019-07-23] MEDS: IPRATROPIUM BROM 0.5 MG/2.5ML INH SOL NEB SCH ×4 (00:16→18:35)
[2019-07-23] MEDS: ALBUTEROL SULF 2.5 MG/0.5ML(0.5%) NEB SOLN NEB SCH ×4 (00:16→18:35)
--- NOTE | 2019-07-23 00:16 | NUR ---
Respiratory note: PT APPEARS AGITATED AND RESTLESS ON BIPAP, RN AWARE. FIO2 TITRATED TO 70%. WILL CONTINUE TO MONITOR.
[2019-07-23] MEDS ORDERED: ALPRAZolam 0.25 MG TAB PO PRN (00:30)
[2019-07-23] MEDS ORDERED: POTASSIUM CHL 20MEQ/100ML 100 ML IV ONE ×2 (00:30→00:45)
[2019-07-23] MEDS ORDERED: POTASSIUM CHL 20 Meq TABLET PO ONE (00:45)
[2019-07-23] MEDS ORDERED: FUROSEMIDE 40 MG/4 ML VIAL IV ONE (01:00)
--- NOTE | 2019-07-23 01:34 | NUR ---
DR Gómez HAAS CALLED, INFORMED OF PT'S CONDITION, ORDERS RECEIVED FOR FUROSEMIDE ONE DOSE, K REPLACEMENT BOTH PO AND IV,AND XANAX PRN ANXIETY. PT RR 23, SAT 96, HR 102, COOPERATIVE TAKES PO MEDS WITHOUT DIFFICULTY. WILL CONTINUE TO MONITOR CLOSELY.
[2019-07-23] MEDS ORDERED: POTASSIUM CHL 20MEQ/100ML 100 ML IV SCH (01:45)
[2019-07-23 03:35] LABS: Basophils # (auto) 0 10 ^3/uL (0-0.2); Basophils % (auto) 0.1 % (0.0-2.0); Eosinophils # (auto) 0 10 ^3/uL (0-0.8); Lymphocytes # (auto) 0.2 10 ^3/uL (0.4-5.4); Mean Corpuscular Volume 79.1 fL (80.0-100.0); Monocytes # (auto) 0.4 10 ^3/uL (0-1.3)
[2019-07-23 03:37] LABS: Hematocrit 26.8 % (36.0-46.0); Hemoglobin 8.6 g/dL (12.2-16.2); Mean Corpuscular Hemoglobin 25.3 pg (28.0-32.0); Monocytes % (auto) 3.1 % (0.0-12.0); Neutrophils # (auto) 11.4 10 ^3/uL (1.6-8.6); Neutrophils % (auto) 94.8 % (37.0-80.0); Platelet Count (auto) 109 10^3/uL (140-450); Red Blood Cells 3.38 10^6/uL (4.0-5.20)
[2019-07-23 04:02] LABS: Calcium 8.6 mg/dL (8.5-10.1); Potassium 3.8 mmol/L (3.5-5.1)
[2019-07-23 04:05] LABS: BUN/Creatinine Ratio 19.1
[2019-07-23] MEDS: methylPREDNISolone SOD SUCC 125 MG/2 ML VL IV SCH ×2 (06:00→14:49)
[2019-07-23] MEDS: ACCU-CHEK COMFORT CURVE STRIP VI SCH ×3 (06:31→17:37)
[2019-07-23] MEDS: InsuLIN REG 1unit/0.01ml Soln (100units/ml) SC SCH ×3 (06:32→17:44)
[2019-07-23] MEDS: LEVOTHYROXINE SODIUM 88 MCG TAB PO SCH (06:32)
--- NOTE | 2019-07-23 07:35 | NUR ---
INITIAL ASSESSMENT Report received from Carrol BETANCOURT, care assumed. Patient is awake and alert. Patient oriented to self and able to follow simple commands. Denies pain at this time. Pulses palpable radial and pedal bilaterally. Denies chest pain or pressure. Blood pressure trending 150's systolic with heart rate 100-110. Lung sounds diminished anteriorly. Patient on Bipap 7/5 with Fio2 65%. Denies shortness of breath at this time. Bruce catheter patent, secure below bladder. Flexiseal in place. SCD's on bilateral lower extremities, off loaded on pillows. Patient on specialty air mattress. Right IJ TLC, dressing is CDI. See IV spreadsheet and wound assessment. Bed locked in lowest position, alarms in place, and call light within reach. Patient instructed to call for assistance, patient verbalized understanding.
[2019-07-23] MEDS: CALCIUM ACETATE 667 MG CAP PO SCH ×3 (08:01→17:48)
--- NOTE | 2019-07-23 08:10 | NUR ---
ORAL INTAKE Bipap mask removed briefly to allow patient to swallow crushed PO medication. Patient swallowed apple sauce and water without coughing or difficulty. Patient placed back on bipap mask. Oxygen saturation decreased to 87% but returned greater than 90% after 1 minutes on Bipap. Patient denies pain or distress at this time.
[2019-07-23] MEDS: HCTZ 25 MG TAB PO SCH (10:00)
[2019-07-23] MEDS: FLUCONAZOLE 200MG/100ML 100 ML IV SCH (10:00)
[2019-07-23] MEDS: amLODIPine BESYLATE 5 MG TAB PO SCH (10:00)
[2019-07-23] MEDS ORDERED: POTASSIUM CHL 20 Meq TABLET PO SCH (10:00)
[2019-07-23] MEDS: CHOLECALCIFEROL (VITD3) 1,000UNIT=25mCg TAB PO SCH (10:01)
[2019-07-23] MEDS: MULTIPLE VITAMIN TAB PO SCH (10:01)
[2019-07-23] MEDS: PANTOPRAZOLE 40 MG TAB PO SCH (10:01)
[2019-07-23] MEDS: MAGNESIUM OXIDE 400 MG TAB PO SCH (10:01)
[2019-07-23] MEDS: CITALOPRAM HYDROBR 20 MG TAB PO SCH (10:01)
--- NOTE | 2019-07-23 11:15 | NUR ---
FAMILY Spoke to patient son Jovon via phone. 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 All questions and concerns addressed.
--- NOTE | 2019-07-23 11:23 | NUR ---
MD VISIT: NEPHROLOGY at bedside assessing patient. MD notified of labs, urine output and IV drips. MD reviewing medical chart.
[2019-07-23] MEDS ORDERED: levoFLOXacin 750MG 150 ML IV SCH (12:45)
--- NOTE | 2019-07-23 13:17 | NUR ---
I faxed transfer order/face sheet to [facility]. I spoke with [facility] Full Fashioned Garment Knitter Smitha, she will call [facility] to check on bed availability and will call me back with [facility] authorization number.
--- NOTE | 2019-07-23 14:00 | NUR ---
MD VISIT: PCP at bedside speaking with patient regarding plan of care. MD plans to transfer patient to [facility]. No bed assignment at this time. Family to be notified of plan.
--- NOTE | 2019-07-23 14:20 | NUR ---
PAGED paged regarding Bumex infusion. requesting to have it changed. Awaiting call back.
--- NOTE | 2019-07-23 14:33 | NUR ---
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 Awaiting call back regarding possibility of coagulation therapy needed.
--- NOTE | 2019-07-23 14:45 | NUR ---
Opening Shift Note Assumed care of patient, awake and oriented to self. No S/S pain. Patient on BIPAP 7/5, 65% FIO2, saturation 91%. Bumex running at 4mls/hr via RT IJ TLC. See interventions for complete assessment. Specialty bed locked on low position, side rails up x2, bed alarms on at all times, call demarco within reach, instructed on POC and to call for assist PRN, will continue to monitor for changes Q1hr and PRN.
[2019-07-23] MEDS: BUMETANIDE INJECTION 25 MG in GIVE UN-DILUTED 0 ML IV SCH (14:53)
--- NOTE | 2019-07-23 14:57 | NUR ---
REPORT Report given to Sepideh BETANCOURT, care endorsed.
--- NOTE | 2019-07-23 14:59 | NUR ---
Dr Gallardo at bedside, updated on patient's status. Reviewed HIT report and states "You may start patient on anticoagulant." Read back and verified.
--- NOTE | 2019-07-23 15:25 | NUR ---
Stool sample sent to lab.
--- NOTE | 2019-07-23 15:27 | NUR ---
Dr Sinclair at bedside, updated on patient's status. Patient seen and examined. Will carry out new orders.
--- NOTE | 2019-07-23 16:09 | NUR ---
Patient will be going to [facility] ICU room 6-accepting MD is Dr. Adames, nurse to call report to [phone] extension [phone]. I called [facility] ([phone]) and spoke with Aniceto-set up critical care transport-ETA of 11pm (per Aniceto their critical care team is extremely busy). I called [facility] Engineering Instructor Smitha and made her aware of seed cone picker time-I relayed this information to patient's primary nurse Sepideh. Addendum: 07/23/19 at 1614 by Nataly Mcfarlane RN [facility] authorization number for [facility] is [id number].
--- NOTE | 2019-07-23 16:15 | NUR ---
Received call from case liner Nataly Mosley stating ETA for patient pick-up is 11pm.
--- NOTE | 2019-07-23 16:52 | NUR ---
Transfer acknowledgment obtained from patient's son Jovon with vacuum metalizer operatorASIA Hicks.
--- NOTE | 2019-07-23 17:26 | NUR ---
Discharge wound photograph taken for reference.
--- NOTE | 2019-07-23 18:29 | NUR ---
Discharge MRSA swab sent to lab
--- NOTE | 2019-07-23 18:52 | NUR ---
Paged Dr Rosales regarding Dr Gallardo's order to go ahead and start patient on anti-coagulant. Awaiting call back.
--- NOTE | 2019-07-23 20:44 | NUR ---
Pt stable, ACLS transport at bedside. Report given to Hanna Damico RN at [facility] at 2014. Photos and MRSA done by AM shift. Pt left on Bipap and gurney. No S/S of distress. Left unit at 2043.
[2019-07-24] VITALS: BP 108/63
== END 2019-07-24 07:14 | disposition short-term general hospital (02) | DRG 207 ==
LOC: EDBD 15:55 → ER 15:55 → EDSEX 15:55 → TELE 15:56 → DOU IN ICU 07-13 11:42 → ICU WEST 07-20 23:01 → TELE-WESTW 07-21 18:19 → DOU IN ICU 07-22 13:48
PROVIDERS: ADMIT Nurse Practitioner Acute Care; ATTEND Hospitalist
PROC: 0BH17EZ Insertion of Endotracheal Airway into Trachea, Via Natural or Artificial Opening (ICD-10-PCS; principal; 2019-07-12)
PROC: 5A1955Z Respiratory Ventilation, Greater than 96 Consecutive Hours (ICD-10-PCS; 2019-07-12)
PROC: 02HV33Z Insertion of Infusion Device into Superior Vena Cava, Percutaneous Approach (ICD-10-PCS; 2019-07-12)
PROC: B5181ZA Fluoroscopy of Superior Vena Cava using Low Osmolar Contrast, Guidance (ICD-10-PCS; 2019-07-12)
PROC: 5A09357 Assistance with Respiratory Ventilation, Less than 24 Consecutive Hours, Continuous Positive Airway Pressure (ICD-10-PCS; 2019-07-22)
DX: J96.01 Acute respiratory failure with hypoxia (principal); J18.9 Pneumonia, unspecified organism; I21.4 Non-ST elevation (NSTEMI) myocardial infarction; I50.33 Acute on chronic diastolic (congestive) heart failure; N17.0 Acute kidney failure with tubular necrosis; J44.1 Chronic obstructive pulmonary disease with (acute) exacerbation; B37.49 Other urogenital candidiasis; E44.0 Moderate protein-calorie malnutrition; E87.2 Acidosis; J45.901 Unspecified asthma with (acute) exacerbation; N18.4 Chronic kidney disease, stage 4 (severe); Z68.41 Body mass index [BMI] 40.0-44.9, adult; E87.4 Mixed disorder of acid-base balance; J96.02 Acute respiratory failure with hypercapnia; D50.9 Iron deficiency anemia, unspecified; B95.0 Streptococcus, group A, as the cause of diseases classified elsewhere; D69.59 Other secondary thrombocytopenia; E66.01 Morbid (severe) obesity due to excess calories; E87.6 Hypokalemia; F32.9 Major depressive disorder, single episode, unspecified; D69.6 Thrombocytopenia, unspecified; E83.39 Other disorders of phosphorus metabolism; E03.9 Hypothyroidism, unspecified; E78.5 Hyperlipidemia, unspecified; R19.7 Diarrhea, unspecified; I25.10 Atherosclerotic heart disease of native coronary artery without angina pectoris; Z79.82 Long term (current) use of aspirin; Z03.818 Encounter for observation for suspected exposure to other biological agents ruled out; Z79.899 Other long term (current) drug therapy; I25.2 Old myocardial infarction
CPT/HCPCS: 31500; 36415; 36556; 36600; 71045; 76775; 80048; 80053; 81001; 82570; 82728; 82805; 82962; 83605; 83615; 83735; 83880; 84100; 84132; 84156; 84300; 84443; 84484; 85007; 85014; 85018; 85025; 85027; 85045; 85379; 85610; 85730; 86141; 86880; 87040; 87070; 87081; 87086; 87088; 87186; 87205; 87493; 87804; 87880; 93005; 93306; 94002; 94003; 94640; 94660; 96365; 96367; 97163; 99291; C9113; G0378; J0330; J0696; J1450; J1756; J1815; J1956; J2001; J2250; J2543; J2704; J3480; J3490; J7060; P9047